=== PATIENT | male | born 1960 | race Caucasian/White ===

== ENCOUNTER 2022-02-12 20:32 | Emergency (ER) | payer BC, SELFPAY ==
[2022-02-12 11:30] VITALS: O2SAT 94
--- NOTE | 2022-02-12 21:07 | CRLHL7_ITS ---
For Patients: As a result of the Century Cures Act, medical imaging exams and procedure reports are released immediately into your electronic medical record. You may view this report before your referring provider. If you have questions, please contact your health care provider. Indication: Pain and deformity at left 5th DIP Technique: Three views left 5th finger Comparison: None Findings impression: There is an obliquely oriented, intra-articular fracture of the base of the 5th distal phalanx. A small segment of distal phalanx remains in place while the remainder of the phalanx is dorsally dislocated 2 mm. Soft tissue swelling of the distal 5th finger. Dictated by Gladys Anthony MD @ 02/12/2022 11:04:31 PM (Electronically Signed)
[2022-02-12 21:26] VITALS: BP 158/96; PULSE 85; RESP 18; TEMP 36.3; O2SAT 98; BMI 22.9
--- NOTE | 2022-02-12 21:34 | ED.NURSE ---
Pt refusing Zofran at this time. States he does not feel nauseated, but more so worked up about situation, which led to emesis episode. Pt also states he used to take Ativan, but doctor will no longer prescribe it.
--- NOTE | 2022-02-12 22:54 | ED.NURSE ---
Pt becoming very aggressive and hostile. Spouse told commercial loan underwriter outside of room that pt's Ativan rx was d/c due to pt not making follow-up appointment. Behavioral Science Chair in room with Ativan to administer to pt. Pt states One milligram of Ativan isn't going to do anything, you need to bring me more! Are you guys even going to do anything? Or am I just going to sit here?. Pt told that doctors were very occupied with critical patients at this time, but that they would be in as soon as they can be. Pt states, Kenan Henry! Are you even going to treat me? I mean I'm having a nervous breakdown!. Pt again reminded that doctors are aware pt is here and will be here as soon as they can be, but disrespect, aggression, and violence will not be tolerated. Pt states Are you fucking kidding me?! Behavioral Science Chair exits room and closes door. Pt storms out of room into bathroom. Pt slamming doors. Security notified.
[2022-02-12] MEDS: OLANZapine 5 MG/ML inj IM (23:18)
[2022-02-12] MEDS: LORazepam 2 MG/ML inj IM (23:18)
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
[2022-02-12 23:50] VITALS: PULSE 79; O2SAT 94
--- NOTE | 2022-02-12 23:50 | ED.NURSE ---
Pt reports he is feeling much calmer now after the IM medications. MD notified.
--- NOTE | 2022-02-13 01:24 | ED.NURSE ---
MD in room with patient and family
--- NOTE | 2022-02-13 01:25 | CRLHL7_ITS ---
For Patients: As a result of the Cures Act, medical imaging exams and procedure reports are released immediately into your electronic medical record. You may view this report before your referring provider. If you have questions, please contact your health care provider. INDICATION: Post reduction. COMPARISON: Left 5th finger from yesterday at 2219 hours FINDINGS: The left 5th finger was examined with PA and lateral views using portable technique at 0138 hours for a total of 2 views. During the interval, the volar dislocation of the 5th distal phalanx has been reduced to near anatomic alignment. There continues to be minimal volar subluxation of the distal phalanx. The acute avulsion fracture of the dorsal aspect of the base of the 5th distal phalanx is seen to be mildly proximally displaced, overlapping the distal head of the 5th middle phalanx. There is no sign of additional acute fracture or dislocation. Again seen are changes of fusion of the 3rd CMC joint with a dorsal metallic plates and multiple anchoring screws. There is no sign of radiopaque foreign body. No degenerative disease is seen. IMPRESSION: Reduction of the previously seen volar dislocation of the 5th distal phalanx to near anatomic alignment, with minimal volar subluxation of the 5th distal phalanx. The acute avulsion fracture of the dorsal aspect of the base of the 5th distal phalanx is again seen to be mild proximally displaced. Dictated by Zhang Guzman MD @ 02/13/2022 2:36:22 AM (Electronically Signed)
== END 2022-02-13 03:14 | disposition home or self-care (01) ==
PROVIDERS: Emergency Provider Family Medicine; PCP Family Medicine
DX: S62.637A Displaced fracture of distal phalanx of left little finger, initial encounter for closed fracture (principal); F43.9 Reaction to severe stress, unspecified; F41.9 Anxiety disorder, unspecified
CPT/HCPCS: 26700; 73140; 94761; 96372; 99284; J2060; S0166

== ENCOUNTER 2022-05-19 17:52 | Emergency (ER) | payer BC, SELFPAY ==
[2022-05-19] VITALS (9 sets, daily range): BP systolic 129–169; BP diastolic 81–84; PULSE 84–116; RESP 16; TEMP 36.4; O2SAT 94–99; BMI 22.9
--- NOTE | 2022-05-19 18:17 | ED.GENADULT ---
HPI - General Adult General Time Seen by Provider: 18:17 Date Seen: 05/19/22 Chief complaint: Abdominal Pain Stated complaint: High Blood Pressure Stomachache Diabetic Issues Time Seen by Provider: 05/19/22 18:11 Source: patient and RN notes reviewed Mode of arrival: ambulatory Limitations: no limitations History of Present Illness HPI narrative: Patient is a 7-year-old male with type 2 diabetes coming in with about 40 history more upper abdominal pain associated with some dry heaving and diarrhea. He states that he has maybe had some sense of chills with this but no documented fever. Their thermometer is broke. He has been able to take in fluids, has been drinking a lot of water trying to keep his sugars down. His glucose has been up over 200 which is not typical for him. He has had really runny diarrheal stools to sometimes semi-soft but nothing formed. He has been stooling a lot. He believes his urination is still normal. He has had some dry heaves. The belly pain is been pretty much constant. He did start lisinopril about 2 weeks ago for elevated blood pressure. They have noticed his pulse is elevated as well. His did bring up the fact that she was worried about his heart in all of this. I reviewed with her that we certainly could do an EKG and a troponin, she was very happy about this. He has had a Tee fundoplication, prior appendectomy, prior cholecystectomy. He has had other orthopedic surgeries. He has had no travel outside of going to [place] at the end of March. He has no definite known ill contacts. His works at [employer] and there was norovirus going around there. She has not had any symptoms. He has had asthma since about age 38 but denies any respiratory symptoms with this. Related Data Home Medications Medication Instructions Recorded Confirmed albuterol sulfate 2.5 mg/3 mL mg 02/12/22 (0.083 %) solution for nebulization atorvastatin 40 mg tablet mg 02/12/22 glimepiride 4 mg tablet mg 02/12/22 hydroxyzine HCl 10 mg tablet mg 02/12/22 inhalational spacing device 02/12/22 02/12/22 (Yannick Carie [facility] spacer) ipratropium bromide 17 inhalation 02/12/22 mcg/actuation HFA aerosol inhaler (Atrovent HFA) budesonide-formoterol HFA 160 inhalation 05/19/22 mcg-4.5 mcg/actuation aerosol inhaler (Symbicort) empagliflozin 25 mg tablet mg 05/19/22 (Jardiance) fenofibrate 160 mg tablet mg 05/19/22 fluticasone propionate 50 intranasal 05/19/22 mcg/actuation nasal spray,suspension lisinopril 10 mg tablet mg 05/19/22 mirtazapine 7.5 mg tablet mg 05/19/22 venlafaxine 75 mg capsule,extended mg PO 05/19/22 release 24 hr Allergies Allergy/AdvReac Type Severity Reaction Status Date / Time amoxicillin Allergy Mild Hives Verified 05/19/22 20:14 cephalexin Allergy Mild Hives Verified 05/19/22 20:14 indomethacin Allergy Mild Flu-like Verified 05/19/22 20:14 Symptoms metformin Allergy Mild Vomiting Verified 05/19/22 20:14 salmeterol [From Serevent] Allergy Mild Muscle Verified 05/19/22 20:14 Cramps Review of Systems Status of ROS: Reports: 10 or more systems reviewed and unremarkable except as noted in History and below Exam Const: Vital Signs, click to edit/add: Vital Signs - 24 hr 05/19/22 18:03 05/19/22 18:29 05/19/22 18:59 Temperature 97.5 F L Pulse Rate 95 Pulse Rate [Right Pulse Oximeter] 116 H Respiratory Rate 16 Blood Pressure Blood Pressure [Ri ght Upper Arm] 169/84 H Pulse Oximetry 98 94 95 Oxygen Delivery Me thod Room Air 05/19/22 19:00 05/19/22 19:01 05/19/22 19:02 Temperature Pulse Rate 94 91 93 Pulse Rate [Right Pulse Oximeter] Respiratory Rate Blood Pressure 142/83 H Blood Pressure [Ri ght Upper Arm] Pulse Oximetry 95 96 97 Oxygen Delivery Me thod 05/19/22 19:20 05/19/22 19:39 05/19/22 20:06 Temperature Pulse Rate 93 Pulse Rate [Right Pulse Oximeter] 90 84 Respiratory Rate 16 16 Blood Pressure Blood Pressure [Ri ght Upper Arm] 148/81 H 129/81 Pulse Oximetry 99 98 98 Oxygen Delivery Me thod Room Air Room Air Documenting provider has reviewed patient's vital signs: yes Common normals: no apparent distress, oriented x3, no limitations, healthy appearing, alert and well nourished General appearance: cooperative, comfortable, well kempt and well developed Nutritional appearance: thin HENMT: Common normals: normocephalic, head/scalp atraumatic, hearing grossly normal bilaterally, external ears normal, external nose normal, nasal mucous membranes and turbinates normal, moist oral mucous membranes, oropharynx normal, dentition normal and gingiva normal Head and scalp: normocephalic and atraumatic Nose: external nose normal and nasal mucous membranes and turbinates normal External ear: external ears normal Eye: Common normals: PERRL, EOMs intact bilaterally, conjunctivae normal and no scleral icterus Conjunctiva: conjunctiva(e) normal Pupil: PERRL Neck & C-Spine: Common normals: full ROM, no lymphadenopathy, supple, no meningeal signs, no JVD and thyroid normal Thyroid: thyroid normal Resp: Common normals: normal respiratory effort, no retractions, no use of accessory muscles and clear to auscultation bilaterally Effort & inspection: able to speak in complete sentences Auscultation: clear to auscultation bilaterally Cardio: Common normals: no JVD GI: Common normals: Normal to inspection, nondistended, normoactive bowel sounds present, soft to palpation, no hepatosplenomegaly and no masses Palpation: soft and no hepatosplenomegaly Other: Is tender in the epigastric area, some in the left lower quadrant as well. Extremity: Other: No lower extremity edema. Neuro: Common normals: oriented x3 Sensorium/orientation: alert Meningeal signs: no meningeal signs Psych: Appearance: well kempt Course Course Hospital Course: Will have patient on pulse oximetry, get a baseline EKG in consider cardiac monitoring if needed. Will get appropriate labs and will do a troponin. He needs imaging of his abdomen, will recommend contrast but do think we should wait on creatinine for him. With initiation of lisinopril a few weeks ago, now with some GI symptomatology, want to ensure that his kidney function is normal. There has been a gastroenteritis virus in the community, partial small-bowel obstruction, they did bring up pancreatic cancer. Try to reassure them that my initial suspicion is not pancreatic cancer but pancreatitis certainly could be an etiology. We will be getting imaging. He is mildly tachycardic, do think it is reasonable to get the EKG and troponin. We will be doing the triple swab to rule out 1 of the viral infectious etiologies. They do understand that sometimes COVID and influenza can % more with GI symptoms. This time will initiate a L of IV fluids over 2 hours, 4 mg IV Zofran and 4 mg IV morphine. He will be on pulse oximetry for initial monitoring. Reevaluation(s) Reevaluation #1: Have reviewed with patient that his CT is normal outside of the fatty liver. He states he was aware that he had fatty liver. I do wonder if he is having the current viral gastroenteritis that we been seen in the community and will proceed with this being the presumptive diagnosis. His laboratory evaluation is unremarkable. They were reassured that his troponin and EKG look fine. Time: 20:16 Vital Signs Vital signs: Initial Vital Signs Temperature 97.5 F L 05/19/22 18:03 Temperature Source Temporal Artery Scan 05/19/22 18:03 Pulse Rate 116 H 05/19/22 18:03 Respiratory Rate 16 05/19/22 18:03 Blood Pressure 169/84 H 05/19/22 18:03 Blood Pressure Mean 112 05/19/22 18:03 Pulse Oximetry 98 05/19/22 18:03 Oxygen Delivery Method 05/19/22 18:03 Vital Signs Temperature 97.5 F L 05/19/22 18:03 Pulse Rate 116 H 05/19/22 18:03 Respiratory Rate 16 05/19/22 18:03 Blood Pressure 169/84 H 05/19/22 18:03 Pulse Oximetry 98 05/19/22 18:03 Oxygen Delivery Method 05/19/22 18:03 Temperature 97.5 F L 05/19/22 18:03 Pulse Rate 84 05/19/22 20:06 Respiratory Rate 16 05/19/22 20:06 Blood Pressure 129/81 05/19/22 20:06 Pulse Oximetry 98 05/19/22 20:06 Oxygen Delivery Method 05/19/22 20:06 Medical Decision Making Lab Data Lab results reviewed: Yes I reviewed the patient's lab results Labs: Lab Results 05/19/22 05/19/22 05/19/22 Range/Units 18:45 18:45 18:45 WBC 8.01 (4.50-11.00) K/uL RBC 5.53 (4.30-5.90) m/uL Hgb 16.4 (13.5-17.5) gm/dL Hct 47.1 (37.0-53.0) % MCV 85 (80-100) fL MCH 30 (26-34) pg MCHC 35 (32-36) gm/dL RDW Coeff of Stefania 12.3 (11.5-15.5) % Plt Count 244 (140-440) K/uL Neut % (Auto) 68.6 (42.0-72.0) % Lymph % (Auto) 20.0 (20-44) % Dougherty % (Auto) 9.7 (0.0-11.0) % Eos % (Auto) 1.0 (0.0-7.0) % Baso % (Auto) 0.6 (0.0-3.0) % Neut # (Auto) 5.49 (1.7-7.0) K/uL Lymph # (Auto) 1.60 (0.90-2.90) K/uL Dougherty # (Auto) 0.80 (0.00-0.90) K/UL Eos # (Auto) 0.08 (0.00-0.50) K/uL Baso # (Auto) 0.05 (0.00-0.30) K/uL Sodium 136 (135-149) mmol/L Potassium 4.3 (3.6-5.1) mmol/L Chloride 104 (96-114) mmol/L Carbon Dioxide 20 (20-32) mmol/L BUN 35 H (7-30) mg/dL Creatinine 1.0 (0.5-1.5) mg/dL Estimated Creat Clear 78.12 Estimated GFR 86 ml/min Glucose 237 H (60-115) mg/dL Lactate 1.4 (0.5-1.9) mmol/L Calcium 9.5 (8.4-10.6) mg/dL Total Bilirubin 0.5 (0.1-1.5) mg/dL AST 43 H (12-35) U/L ALT 75 H (4-50) U/L Alkaline Phosphatase 129 (40-150) U/L C-Reactive Protein 0.6 (0.5-1.0) mg/dL Total Protein 8.5 H (6.0-8.3) g/dL Albumin 4.9 (3.3-5.0) g/dL Lipase 227 (23-300) U/L SARS-CoV-2 (PCR) (Negative) Influenza Type A (PCR) (Negative) Influenza Type B (PCR) (Negative) RSV (PCR) (Negative) POC Troponin I (0.01-0.04) ng/ml 05/19/22 05/19/22 Range/Units 18:52 18:58 WBC (4.50-11.00) K/uL RBC (4.30-5.90) m/uL Hgb (13.5-17.5) gm/dL Hct (37.0-53.0) % MCV (80-100) fL MCH (26-34) pg MCHC (32-36) gm/dL RDW Coeff of Stefania (11.5-15.5) % Plt Count (140-440) K/uL Neut % (Auto) (42.0-72.0) % Lymph % (Auto) (20-44) % Dougherty % (Auto) (0.0-11.0) % Eos % (Auto) (0.0-7.0) % Baso % (Auto) (0.0-3.0) % Neut # (Auto) (1.7-7.0) K/uL Lymph # (Auto) (0.90-2.90) K/uL Dougherty # (Auto) (0.00-0.90) K/UL Eos # (Auto) (0.00-0.50) K/uL Baso # (Auto) (0.00-0.30) K/uL Sodium (135-149) mmol/L Potassium (3.6-5.1) mmol/L Chloride (96-114) mmol/L Carbon Dioxide (20-32) mmol/L BUN (7-30) mg/dL Creatinine (0.5-1.5) mg/dL Estimated Creat Clear Estimated GFR ml/min Glucose (60-115) mg/dL Lactate (0.5-1.9) mmol/L Calcium (8.4-10.6) mg/dL Total Bilirubin (0.1-1.5) mg/dL AST (12-35) U/L ALT (4-50) U/L Alkaline Phosphatase (40-150) U/L C-Reactive Protein (0.5-1.0) mg/dL Total Protein (6.0-8.3) g/dL Albumin (3.3-5.0) g/dL Lipase (23-300) U/L SARS-CoV-2 (PCR) Negative SARS-CoV-2 (Negative) Influenza Type A (PCR) Negative PCR FLU A (Negative) Influenza Type B (PCR) Negative PCR FLU B (Negative) RSV (PCR) Negative PCR RSV (Negative) POC Troponin I 0.00 L (0.01-0.04) ng/ml Imaging Data CT scan - abdomen: Attestation: I have reviewed the pertinent imaging results. Radiologist's impression: Patient: [facility] Facility:?[facility] Patient ID:?[id number] Site Patient ID:?[id number]. Site :?[id number] Study:?CT Abdomen/Pelvis 76cc Isovue 370-05/19/2022 7:36:59 PM Ordering Physician:Vladimir Ortega Final Report: INDICATION: Abdominal pain/diarrhea. TECHNIQUE: CT abdomen and pelvis acquired with 76 cc Isovue 3 septae IV contrast. COMPARISON: None. FINDINGS: Lower chest: Unremarkable. Liver: Hepatic steatosis. Gallbladder and bile ducts: Cholecystectomy. Pancreas: Unremarkable. No mass or inflammation. Spleen: Unremarkable. Normal in size. No masses. Adrenal glands: Unremarkable. No nodules. Kidneys: Unremarkable. No suspicious masses, stones, or hydronephrosis. GI tract: Postsurgical changes about the GE junction. Normal in caliber. No sign of mass or inflammation. Vasculature: Abdominal aorta is normal in caliber. Mesenteric arteries are patent. Lymph nodes: No lymphadenopathy. Peritoneum/Abdominal Wall: Unremarkable. No sign of mass or infiltration. No free air or significant free fluid. Pelvis: Unremarkable. Bones: Unremarkable for age. IMPRESSION: No acute intra-abdominal/pelvic abnormality. Hepatic steatosis. Please note that all CT scans at this facility use dose modulation, iterative reconstruction, and/or weight-based dosing when appropriate to reduce radiation dose to as low as reasonably achievable. Dictated by Km Mckeon MD @ 05/19/2022 7:54:44 PM (Electronic Signature) ECG Data Attestation: I personally reviewed and interpreted this ECG as follows: (Normal sinus rhythm, 100 beats per minute. Flipped T-waves without ST segment slip box changer 3. QT corrected 433 milliseconds. No acute ischemia noted.) Prior ECG tracings: not available for review Critical Care Time Critical Care Time Critical Care Time: No Discharge Plan Discharge Clinical Impression: Gastroenteritis Patient Disposition: Home, Self-Care Condition: Stable Instructions: Gastroenteritis (ED), Nutrition Tips for Relief of Diarrhea (ED) Additional Instructions: Continue to push fluids. Follow handout on dietary recommendations for diarrhea, may advance diet back to normal as you are feeling better. Hopefully as this resolves, your sugars will improve. I would recommend recheck in 24-48 hours if you are not improving or at any point you feel you are worsening. Prescriptions: No Action atorvastatin 40 mg tablet Label Comments: TAKE 1 TABLET BY MOUTH AT BEDTIME albuterol sulfate 2.5 mg /3 mL (0.083 %) solution for nebulization Label Comments: INHALE 3 ML (2.5 MG) VIA A NEBULIZER EVERY 4 HOURS IF NEEDED FOR SHORTNESS OF BREATH. glimepiride 4 mg tablet Label Comments: TAKE 2 TABLETS (8 MG) BY MOUTH ONCE DAILY WITH A MEAL. hydroxyzine HCl 10 mg tablet Label Comments: TAKE 1 TO 2 TABS AT BEDTIME NEEDED FOR SLEEP & 1 TAB UP TO 2X DAILY NEEDED FOR ANXIETY (DME) [facility] Spacer MISCELLANEOUS Label Comments: FOR HOME USE. Atrovent HFA 17 mcg/actuation HFA aerosol inhaler INHALATION Label Comments: INHALE 2 PUFFS BY MOUTH 4 TIMES DAILY. lisinopril 10 mg tablet Label Comments: TAKE 1 TABLET BY MOUTH EVERY DAY venlafaxine 75 mg capsule,extended release 24hr PO Label Comments: TAKE 1 CAPSULE BY MOUTH EVERY DAY fluticasone propionate 50 mcg/actuation spray,suspension INTRANASAL Label Comments: INSTILL 2 SPRAYS TO BOTH NOSTRILS ONCE DAILY mirtazapine 7.5 mg tablet Label Comments: TAKE 1 TABLET BY MOUTH AT BEDTIME fenofibrate 160 mg tablet Label Comments: TAKE 1 TABLET (160 MG) BY MOUTH ONCE DAILY WITH A MEAL budesonide-formoterol [Symbicort] 160-4.5 mcg/actuation HFA aerosol inhaler INHALATION Label Comments: INHALE 2 PUFFS BY MOUTH TWICE A DAY Jardiance 25 mg tablet Label Comments: TAKE 1 TABLET BY MOUTH EVERY DAY Follow Up/Referrals: Patience Figueroa MD [Primary Care Provider] - Stand Alone Forms: [facility] Info Instructions
--- NOTE | 2022-05-19 18:30 | CRLHL7_ITS ---
For Patients: As a result of the Century Cures Act, medical imaging exams and procedure reports are released immediately into your electronic medical record. You may view this report before your referring provider. If you have questions, please contact your health care provider. INDICATION: Abdominal pain/diarrhea. TECHNIQUE: CT abdomen and pelvis acquired with 76 cc Isovue 3 septae IV contrast. COMPARISON: None. FINDINGS: Lower chest: Unremarkable. Liver: Hepatic steatosis. Gallbladder and bile ducts: Cholecystectomy. Pancreas: Unremarkable. No mass or inflammation. Spleen: Unremarkable. Normal in size. No masses. Adrenal glands: Unremarkable. No nodules. Kidneys: Unremarkable. No suspicious masses, stones, or hydronephrosis. GI tract: Postsurgical changes about the GE junction. Normal in caliber. No sign of mass or inflammation. Vasculature: Abdominal aorta is normal in caliber. Mesenteric arteries are patent. Lymph nodes: No lymphadenopathy. Peritoneum/Abdominal Wall: Unremarkable. No sign of mass or infiltration. No free air or significant free fluid. Pelvis: Unremarkable. Bones: Unremarkable for age. IMPRESSION: No acute intra-abdominal/pelvic abnormality. Hepatic steatosis. Please note that all CT scans at this facility use dose modulation, iterative reconstruction, and/or weight-based dosing when appropriate to reduce radiation dose to as low as reasonably achievable. Dictated by Km Mckeon MD @ 05/19/2022 7:54:44 PM (Electronically Signed)
[2022-05-19] MEDS: ONDANSETRON 2 MG/ML inj 4 MG IVP (18:46)
[2022-05-19] MEDS: 0.9 % SODIUM CHLORIDE 1000 ml 1,000 ML 500 ML IV (18:46)
[2022-05-19] MEDS: MORPHINE 4 MG/ML INJ IVP (18:46)
[2022-05-19 18:49] LABS: Lactate* 1.4 mmol/L (0.5-1.9)
[2022-05-19 18:53] LABS: Basophils Absolute Auto 0.05 K/uL (0.00-0.30); Basophils Percent Auto 0.6 % (0.0-3.0); Eosinophils Absolute Auto 0.08 K/uL (0.00-0.50); Hematocrit 47.1 % (37.0-53.0); Hemoglobin* 16.4 gm/dL (13.5-17.5); Immature Granulocytes Abs Auto 0.01 K/uL (0.00-0.30); Immature Granulocytes Pct Auto 0.1 %; Mean Corpuscular HGB Conc 35 gm/dL (32-36); Mean Corpuscular Hemoglobin 30 pg (26-34); Mean Corpuscular Volume 85 fL (80-100); Monocytes Percent Auto 9.7 % (0.0-11.0); Neutrophils Absolute Auto 5.49 K/uL (1.7-7.0); Neutrophils Percent Auto 68.6 % (42.0-72.0); Platelet Count* 244 K/uL (140-440); RDW Coefficient of Variation % 12.3 % (11.5-15.5); Red Blood Count 5.53 m/uL (4.30-5.90); White Blood Count* 8.01 K/uL (4.50-11.00)
[2022-05-19 18:56] LABS: Slide Review Reflex No
[2022-05-19 19:09] LABS: Albumin* 4.9 g/dL (3.3-5.0); Chloride* 104 mmol/L (96-114)
[2022-05-19 19:10] LABS: Potassium* 4.3 mmol/L (3.6-5.1); Sodium* 136 mmol/L (135-149)
[2022-05-19 19:12] LABS: Alanine Aminotransferase* 75 U/L (4-50); Alkaline Phosphatase* 129 U/L (40-150); Aspartate Amino Transferase* 43 U/L (12-35); Bilirubin Total* 0.5 mg/dL (0.1-1.5); Blood Urea Nitrogen* 35 mg/dL (7-30); Carbon Dioxide* 20 mmol/L (20-32); Est. Creatinine Clearance* 78.12; Estimated Glomerular Filt Rate 86 ml/min; Lipase* 227 U/L (23-300); Total Protein* 8.5 g/dL (6.0-8.3)
[2022-05-19 19:13] LABS: Calcium* 9.5 mg/dL (8.4-10.6); Glucose* 237 mg/dL (60-115)
[2022-05-19 19:15] LABS: C Reactive Protein* 0.6 mg/dL (0.5-1.0)
[2022-05-19 19:38] LABS: PCR FLU A Negative PCR FLU A (Negative); PCR FLU B Negative PCR FLU B (Negative); PCR RSV Negative PCR RSV (Negative)
[2022-05-19 19:41] LABS: SARS PCR* Negative SARS-CoV-2 (Negative)
== END 2022-05-19 20:29 | disposition home or self-care (01) ==
PROVIDERS: Emergency Provider Family Medicine; PCP Family Medicine
DX: K52.9 Noninfective gastroenteritis and colitis, unspecified (principal)
CPT/HCPCS: 36415; 74177; 80053; 83605; 83690; 84484; 85025; 86140; 87502; 87634; 87635; 93005; 94761; 96361; 96374; 96375; 99284; 99285; J2270; J2405; J7030; Q9967

== ENCOUNTER 2022-12-07 21:42 | Emergency (ER) | payer BC, SELFPAY ==
[2022-12-07] VITALS (13 sets, daily range): BP systolic 131–147; BP diastolic 77–95; PULSE 73–86; RESP 20; TEMP 36.2; O2SAT 97–100; BMI 22.2
--- OUTSIDE RECORDS SUMMARY | 2022-12-07 21:46 | XMS_ITS | Continuity of Care Document ---
Author Name Unknown Organization [facility] Address [address] [address] [place] [address] Phone Care Team Providers Care Certified Health Education Specialist Name Role Phone Walt Gregory MD Unavailable Unavailable Procedures Procedure Date Ugi Endo; Dx W/wo Collec Specm 13 Colonoscopy Flex; Dx (sep Pro) 13 Advance Directives Directive Yes / No Effective Date File Name No Information Encounters Encounter Description Practice Location Reason(s) For Visit Diagnoses Date Provider Providers Copied on Encounter [facility], [address] [address], [place], [place], [id number], [place] tel:[phone] [facility] No Information Colt Godoy. [address] [facility], [place], [place], [id number], [place]. tel:[phone] Referring Provider: Homero Renteria MD D, [address] [facility] [address], [place], [address]. tel:[phone] Family History Family Member Type Diagnosis Age At Onset No Information Payers Payer name Insurance type Covered green party ID Authoriza tion(s) [employer] [facility] CI [id number] Social History Type Description Quantity Date Captured Comments Sex Male Smoking Status No Information Chief Complaint And Reason For Visit No Information Reason For Referral Reason For Referral No Information History Of Present Illness Encounter Date Complaint History Of Prese nt Illness No Information Functional Status Date Functional Assessmen t No Information Instructions Date Instruction Additional Infor mation No Information Assessments Type Assessment Date No Information Patient Care Teams Name Effective Dates (start - stop) Status Members No Information
[2022-12-07 22:01] LABS: Glucose, Point-of-Care* 283 mg/dl (60-115)
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
--- NOTE | 2022-12-07 22:10 | ED.NURSE ---
pt reporting pain, saying he is always in pain, has fibromyalgia and arthritis
--- NOTE | 2022-12-07 22:12 | CRLHL7_ITS ---
For Patients: As a result of the Cures Act, medical imaging exams and procedure reports are released immediately into your electronic medical record. You may view this report before your referring provider. If you have questions, please contact your health care provider. INDICATION: Asthma TECHNIQUE: Chest radiograph 2 views COMPARISON: None FINDINGS: Mediastinum: The mediastinum is normal in appearance. The heart silhouette is normal in size and morphology. Lung: Both lungs are unremarkable in appearance. No sign of pleural effusion seen. No pneumothorax is identified. Bone and Soft tissue: Unremarkable for age. IMPRESSION: 1. No acute cardiopulmonary disease is seen. Dictated by: Alexandro Vidales MD @ 12/08/2022 00:22:01 (Electronically Signed)
[2022-12-07 22:20] LABS: HCO3 VBG 21 mmol/L (21-28); Lactate* 2.6 mmol/L (0.5-1.9); PCO2 VBG 24 mmHG (40-50); PO2 VBG 65.4 mmHG (25-47); pH VBG 7.545 (7.32-7.43)
[2022-12-07 22:39] LABS: Albumin* 4.5 g/dL (3.3-5.0); Chloride* 107 mmol/L (96-114)
[2022-12-07 22:40] LABS: Potassium* 4.4 mmol/L (3.6-5.1); Sodium* 135 mmol/L (135-149)
[2022-12-07 22:41] LABS: Basophils Absolute Auto 0.05 K/uL (0.00-0.30); Basophils Percent Auto 0.7 % (0.0-3.0); Eosinophils Absolute Auto 0.25 K/uL (0.00-0.50); Eosinophils Percent Auto 3.5 % (0.0-7.0); Hematocrit 42.7 % (37.0-53.0); Hemoglobin* 14.5 gm/dL (13.5-17.5); Immature Granulocytes Abs Auto 0.02 K/uL (0.00-0.30); Immature Granulocytes Pct Auto 0.3 %; Lymphocytes Absolute Auto 1.76 K/uL (0.90-2.90); Lymphocytes Percent Auto 24.9 % (20-44); Mean Corpuscular HGB Conc 34 gm/dL (32-36); Mean Corpuscular Hemoglobin 29 pg (26-34); Mean Corpuscular Volume 86 fL (80-100); Monocytes Percent Auto 9.3 % (0.0-11.0); Neutrophils Absolute Auto 4.34 K/uL (1.7-7.0); Neutrophils Percent Auto 61.3 % (42.0-72.0); Platelet Count* 296 K/uL (140-440); RDW Coefficient of Variation % 13.6 % (11.5-15.5); Red Blood Count 4.98 m/uL (4.30-5.90); White Blood Count* 7.08 K/uL (4.50-11.00)
[2022-12-07 22:42] LABS: Est. Creatinine Clearance* 74.65; Estimated Glomerular Filt Rate 86 ml/min
[2022-12-07 22:43] LABS: Alanine Aminotransferase* 40 U/L (4-50); Alkaline Phosphatase* 116 U/L (40-150); Anion Gap 10 mEq/L (7-15); Aspartate Amino Transferase* 34 U/L (12-35); Bilirubin Total* 0.4 mg/dL (0.1-1.5); Blood Urea Nitrogen* 26 mg/dL (7-30); Calcium* 9.7 mg/dL (8.4-10.6); Carbon Dioxide* 18 mmol/L (20-32); Glucose* 249 mg/dL (60-115); Total Protein* 7.8 g/dL (6.0-8.3)
[2022-12-07 22:44] LABS: D Dimer Quantitative* 0.42 ug/ml (0.00-0.50)
[2022-12-07 22:46] LABS: C Reactive Protein* 0.9 mg/dL (0.5-1.0)
[2022-12-07 22:48] LABS: Slide Review Reflex No
[2022-12-07 22:52] LABS: NT Pro B Type NatriureticPept* 28 pg/mL
[2022-12-07 22:58] LABS: Procalcitonin* 0.08 ng/mL (<0.50)
[2022-12-07 23:04] LABS: PCR FLU A Negative PCR FLU A (Negative); PCR FLU B Negative PCR FLU B (Negative); PCR RSV Negative PCR RSV (Negative)
[2022-12-07 23:07] LABS: SARS PCR* Negative SARS-CoV-2 (Negative)
--- NOTE | 2022-12-07 23:45 | ED.NURSE ---
pt report given off to oncoming RN.
[2022-12-08] VITALS: PULSE 73; O2SAT 97
[2022-12-08 00:01] VITALS: BP 135/82; PULSE 72; O2SAT 93
[2022-12-08 00:30] VITALS: PULSE 80; O2SAT 94
[2022-12-08 00:32] VITALS: BP 121/99; PULSE 78; O2SAT 96
[2022-12-08 00:56] VITALS: BP 121/99; PULSE 74; RESP 18
== END 2022-12-08 01:03 | disposition home or self-care (01) ==
PROVIDERS: Emergency Provider Family Medicine
DX: F41.9 Anxiety disorder, unspecified (principal)
CPT/HCPCS: 36415; 71046; 80053; 82803; 82947; 83605; 83880; 84145; 84484; 85025; 85379; 86140; 87631; 93005; 94761; 99284; 99285

== ENCOUNTER 2024-03-29 22:17 | Emergency (ER) | payer MEDICARE, BC, SELFPAY ==
--- OUTSIDE RECORDS SUMMARY | 2024-03-29 22:19 | XMS_ITS | Clinical Summary ---
Author Organization [facility] Address [address] [place] [id number] Care Team Providers Care Bag Mender Name Role Phone Terrirui Kristie Zamora APRN INFLATED BALL MOLDER Primary Care Provid er Allergies Active Allergy Reactions Criticality Noted Date Comments Amoxicillin Low 02/20/2002 rash Cephalexin Low 02/20/2002 rash Erythromycin Low 02/20/2002 rash Metformin Low 11/25/2018 Diarrhea and nausea Salmeterol Medium 02/09/2008 Muscle cramps Medications Esomeprazole Magnesium (NEXIUM PO) Take 20 mg by mouth Active blood glucose (ACCU-CHEK RUBENS PLUS) test stripIndications :Type 2 diabetes mellitus without complication, without long-term current use of insulin (H) Use to test blood sugar 2-3 times daily or as directed. 300 strip 3 0 Active albuterol (PROAIR HFA/PROVENTIL HFA/VENTOLIN HFA) 108 (90 Base) MCG/ACT inhalerIndicatio ns:Moderate intermittent asthma without complication Inhale 2 puffs into the lungs every 6 hours as needed for shortness of breath / dyspnea or wheezing 3 Inhaler 3 0 Active ipratropium (ATROVENT HFA) 17 MCG/ACT inhalerIndicatio ns:Moderate intermittent asthma without complication Inhale 2 puffs into the lungs every 6 hours 1 Inhaler 12 0 Active ipratropium (ATROVENT) 0.02 % neb solutionIndicati ons:Moderate intermittent asthma without complication Take 2.5 mLs (0.5 mg) by nebulization 4 times daily 75 mL 12 0 Active Additional Information Patient not taking.Reported on 06/26/2020 empagliflozin (JARDIANCE) 25 MG TABS tabletIndication s:Type 2 diabetes mellitus without complication, without long-term current use of insulin (H) Take 1 tablet (25 mg) by mouth daily 90 tablet 3 0 Active budesonide-formo terol (SYMBICORT) 160-4.5 MCG/ACT InhalerIndicatio ns:Moderate intermittent asthma without complication INHALE 2 PUFFS INTO THE LUNGS TWO TIMES DAILY 30.6 Inhaler 3 0 Active vitamin D3 (CHOLECALCIFEROL ) 50 mcg (2000 units) tabletIndication s:Vitamin D deficiency TAKE 1 TABLET BY MOUTH EVERY DAY 100 tablet 2 0 Active meclizine (ANTIVERT) 25 MG tabletIndication s:Benign paroxysmal positional vertigo due to bilateral vestibular disorder Take 1 tablet (25 mg) by mouth 3 times daily as needed for dizziness 90 tablet 1 1 Active cyclobenzaprine (FLEXERIL) 10 MG tabletIndication s:Muscle spasm Take 1 tablet (10 mg) by mouth nightly as needed for muscle spasms 90 tablet 1 1 Active LORazepam (ATIVAN) 0.5 MG tabletIndication s:Anxiety Take 1 tablet (0.5 mg) by mouth 2 times daily as needed for anxiety 60 tablet 3 1 Active glimepiride (AMARYL) 4 MG tabletIndication s:Type 2 diabetes mellitus without complication, without long-term current use of insulin (H) Take 1 tablet (4 mg) by mouth every morning (before breakfast) 90 tablet 3 1 Active buPROPion (WELLBUTRIN XL) 150 MG 24 hr tabletIndication s:Anxiety TAKE 1 TABLET BY MOUTH EVERY MORNING 90 tablet 1 1 Active atorvastatin (LIPITOR) 40 MG tabletIndication s:Hypertriglycer idemia,Hyperchol esteremia TAKE 1 TABLET BY MOUTH EVERY DAY 90 tablet 1 Active citalopram (CELEXA) 40 MG tabletIndication s:Anxiety TAKE 1 TABLET BY MOUTH EVERY DAY 90 tablet 1 Active fenofibrate (TRIGLIDE/LOFIBR A) 160 MG tabletIndication s:Type 2 diabetes mellitus without complication, without long-term current use of insulin (H),Hypertriglyc eridemia,Hyperch olesteremia TAKE 1 TABLET BY MOUTH EVERY DAY 90 tablet 1 Active Active Problems Problem Noted Date Diagnosed Date Hypertriglyceridemia 01/19/2018 CARDIOVASCULAR SCREENING; LDL GOAL LESS THAN 100 04/01/2017 Type 2 diabetes mellitus wit hout complication, without long-term current use of insulin 10/29/2016 Anxiety 11/25/2011 Moderate persistent asthma 04/08/2005 Esophageal reflux 05/01/2002 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 Provider to review Sarcoidosis Overview (03/01/2007): (incidental cxr finding) (+) bx , asymptomatic Resolved Problems Problem Noted Date Diagnosed Date Resolved Date Mixed hyperlipidemia 02/03/2010 012 Immunizations Name Administration Dates Next Due COVID-19 Monovalent 18+ (Moderna) 01/28/2021 COVID-19 Vaccine (Adry) 06/19/2020 Influenza (H1N1) 03/07/2009 Influenza (IIV3) PF 12/19/2008 Influenza Vaccine 18-64 (Flublok) 11/30/2019 TD,PF 7+ (Tenivac) 08/20/2001 TDAP Vaccine (Adacel) 11/19/2011 Tdap (Adult) Unspecified Formulation 07/12/2020 Zoster recombinant adjuvanted (SHINGRIX) 021,07/12/2020 Family History Medical History Relation Comments Cancer Father skin Cerebrovascular Disease Father Diabetes Father adult Hypertension Father also crohn's dz Cancer Maternal Grandfather esoph. smok er Breast Cancer Maternal Grandmother Breast Cancer Mother Diabetes Paternal Grandfather adult Hypertension Paternal Grandmother Neurologic Disorder Sister 1 fibromialgia Gastrointestinal Disease Sister 2 chrones Relation Status Comments Father Alive Maternal Grandfather Maternal Grandmother Mother Paternal Grandfather Paternal Grandmother Sister 1 Sister 2 Social History Tobacco Use Types Packs/Day Years Used Date Smoking Tobacco: Never Smokeless Tobacco: Never Alcohol Use Standard Drinks/Week Comments No 0 (1 standard drink = 0.6 oz pur e alcohol) PHQ-2 Answer Date Recorded PHQ-2 Score 1 11/30/2019 Adolescent Education Answer Date Record ed Getting School Help Needed Not on file 12/12 Sex and Gender Information Value Date Recorded Sex Assigned at Not on file 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 Gender Identity Not on file Sexual Orientation Not on file 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 Not on file Last Filed Vital Signs Vital Sign Reading Time Taken Comments Blood Pressure 130/78 06/26/2020 7:24 AM CDT Pulse 75 06/26/2020 7:24 AM CDT Temperature 36.8 C (98.2 F) 06/26/2020 7:24 AM CDT Respiratory Rate 22 06/26/2020 7:24 AM CDT Oxygen Saturation 99% 06/26/2020 7:24 AM CDT Inhaled Oxygen Concentration - - Weight 72.1 kg (159 lb) 06/26/2020 7:24 AM CDT Height 175.3 cm (5' 9) 06/26/2020 7:24 AM CDT Body Mass Index 23.48 06/26/2020 7:24 AM CDT Plan of Treatment Not on file Insurance [facility] [employer] [facility] [place] [place] [address] Care Teams Bag Mender Relationship Specialty Start Date End Date Kristie Barrientos APRN CNP [address] [place] [address] PCP - General Nurse Practitioner - Family 09/28/16
--- OUTSIDE RECORDS SUMMARY | 2024-03-29 22:19 | XMS_ITS | Referral Summary ---
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
--- OUTSIDE RECORDS SUMMARY | 2024-03-29 22:19 | XMS_ITS | Encounter Summary ---
Author Organization [facility] Address [address] [place] [address] Care Team Providers Care Nutrition Services Manager Name Role Phone No Ref-Primary, Physician Primary Care Provider CreagaKristie hunt APRN P[facility]DMAN Primary Care Provid er Creagan, Kristie Zamora APRN PONDMAN Unavailable [phone]- [phone] Creagan, Kristie Zamora APRN PONDMAN Unavailable [phone]- [phone] Creagan, Kristie Zamora APRN PONDMAN Unavailable [phone]- [phone] Reason for Visit * Reason Onset Date Comments Diabetes Education 08/13/2016 Encounter Details Date Type Department Care Team (Late st Contact Info) Description 08/13/[address] [place] [address] Kristie Barrientos RN Diabetes Education Social History Tobacco Use Types Packs/Day Years Used Date Smoking Tobacco: Never Alcohol Use Standard Drinks/Week Comments No 0 (1 standard drink = 0.6 oz pur e alcohol) Sex and Gender Information Value Date Recorded Sex Assigned at Not on file Legal 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 Patient states he has an appt scheduled for 09/07/16, admits that he has scheduled out that far because of his ownschedule. Encouraged pt to try to get in as soon as he can and to consider rescheduling appt. To doso. Garth Nicole R.N. * Telephone Encounter - Cameron Foster - 08/13/2016 1:24 PM CDT Diabetes Education Scheduling Outreach #1: Call to patient to schedule. Left message with phone number to call to schedule. Plan for 2nd outreach attempt within 1 week. [facility] documented in this encounter Plan of Treatment Not on file documented as of this encounter Visit Diagnoses Diagnosis Hypertriglyceridemia Pure hyperglyceridemia Type 2 diabetes mellitus with complication, without long-term current use of insulin (H) documented in this encounter Care Teams Nutrition Services Manager Relationship Specialty Start Date End Date No Ref-Primary, Physician PCP - General 08/11/16 09/27/16 Kristie Barrientos APRN [place] [address] [place] [address] PCP - General Nurse Practitioner - Family 09/28/16 Kristie Barrientos APRN [place] [address] [place] [address] PCP - Assigned PCP 08/16/16 05/24/18 Kristie Barrientos APRN [place] [address] [place] [address] Assigned PCP 08/16/16 03/06/22 Kristie Barrientos APRN [facility]DMAN [address] [place] [address] Assigned PCP 05/16/22 08/11/23 documented as of this encounter
--- OUTSIDE RECORDS SUMMARY | 2024-03-29 22:19 | XMS_ITS | Encounter Summary ---
Author Organization [facility] Address [address] [place] [address] Care Team Providers Care Retail Maintenance Technician Name Role Phone Kristie Barrientos APRN, CNP Primary Care Provid er Kristie Barrientos APRN WATCH PARTS INSPECTOR Unavailable + [phone] Kristie Barrientos APRN WATCH PARTS INSPECTOR Unavailable + [phone] Encounter Details Date Type Department Care Team (Late st Contact Info) Description 12/03/2020 [facility] [address] [place] [address] Vashti Lerner RN Social History Tobacco Use Types Packs/Day Years Used Date Smoking Tobacco: Never Smokeless Tobacco: Never Alcohol Use Standard Drinks/Week Comments No 0 (1 standard drink = 0.6 oz pur e alcohol) PHQ-2 Answer Date Recorded PHQ-2 Score 1 11/30/2019 Sex and Gender Information Value Date Recorded Sex Assigned at Not on file 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 Gender Identity Not on file Sexual Orientation Not on file 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 Not on file documented as of this encounter Plan of Treatment Not on file documented as of this encounter Visit Diagnoses Not on filedocumented in this encounter Additional Health Concerns Assessment Noted Time PHQ-9 Depression Total Score: 6 11/30/19 20 8:00 AM CDT documented as of this encounter Care Teams Retail Maintenance Technician Relationship Specialty Start Date End Date Kristie Barrientos APRN CNP [address] [place] [address] PCP - General Nurse Practitioner - Family 09/28/16 Kristie Barrientos APRN WATCH PARTS INSPECTOR [address] [place] [address] Assigned PCP 08/16/16 03/06/22 Kristie Barrientos APRN WATCH PARTS INSPECTOR [address] [place] [address] Assigned PCP 05/16/22 08/11/23 documented as of this encounter
--- OUTSIDE RECORDS SUMMARY | 2024-03-29 22:19 | XMS_ITS | Encounter Summary ---
Author Organization [facility] Address [address] [place] [address] Care Team Providers Care Community Nutrition Educator Name Role Phone Kristie Barrientos APRN, CNP Primary Care Provid er TerriagaKristie hunt APRN PLAYBACK OPERATOR Unavailable [phone]- [phone] TerriagaKristie hunt APRN PLAYBACK OPERATOR Unavailable Reason for Visit * Reason Comments Medication Refill Encounter Details Date Type Department Care Team (Late st Contact Info) Description 08/22/2019 [facility] [address] [facility] [address] [place] [address] Kristie Barrientos APRN [facility] [address] [place], [place] [id number] Medication Refill Social History Tobacco Use Types Packs/Day Years Used Date Smoking Tobacco: Never Smokeless Tobacco: Never Alcohol Use Standard Drinks/Week Comments No 0 (1 standard drink = 0.6 oz pur e alcohol) PHQ-2 Answer Date Recorded PHQ-2 Score 0 03/29/2018 Sex and Gender Information Value Date Recorded Sex Assigned at Not on file 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 Gender Identity Not on file Sexual Orientation Not on file 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 Not on file documented as of this encounter Plan of Treatment Not on file documented as of this encounter Visit Diagnoses Diagnosis Type 2 diabetes mellitus without complication, without long-term current use of insulin (H) documented in this encounter Care Teams Community Nutrition Educator Relationship Specialty Start Date End Date Kristie Barrientos APRN PLAYBACK OPERATOR [address] [place], [place] [address] PCP - General Nurse Practitioner - Family 09/28/16 Kristie Barrientos APRN PLAYBACK OPERATOR [address] [place] [address] Assigned PCP 08/16/16 03/06/22 Kristie Barrientos APRN PLAYBACK OPERATOR [address] [place] [address] Assigned PCP 05/16/22 08/11/23 documented as of this encounter
--- OUTSIDE RECORDS SUMMARY | 2024-03-29 22:19 | XMS_ITS | Encounter Summary ---
Author Organization [facility] Address [address] [place] [address] Care Team Providers Care Manufacturers Representative Name Role Phone Valdemar Richard MD Primary Care Provider [phone]- [phone] Homero Renteria MD Primary Care Provider [phone] No Ref-Primary, Physician Primary Care Provider Kristie Barrientos APRN SENIOR MAINFRAME DEVELOPER Primary Care Provid er Creagan, Kristie Zamora APRN SENIOR MAINFRAME DEVELOPER Unavailable [phone]- [phone] CreagaKristie hunt APRN SENIOR MAINFRAME DEVELOPER Unavailable [phone]- [phone] CreaganKristie APRN SENIOR MAINFRAME DEVELOPER Unavailable +1- [phone] Encounter Details Date Type Department Care Team (Late st Contact Info) Description 07/02/[address] [place] [address] Valdemar Richard MD [facility] [employer] [facility] [address] [place] [address] [facility] (Primary Dx) Social History Tobacco Use Types Packs/Day Years Used Date Smoking Tobacco: Never Smokeless Tobacco: Never Alcohol Use Standard Drinks/Week Comments No 0 (1 standard drink = 0.6 oz pur e alcohol) Sex and Gender Information Value Date Recorded Sex Assigned at Not on file 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 Gender Identity Not on file Sexual Orientation Not on file 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 Not on file documented as of this encounter Plan of Treatment Not on file documented as of this encounter Visit Diagnoses Diagnosis [facility]- Primary documented in this encounter Care Teams Manufacturers Representative Relationship Specialty Start Date End Date Valdemar Richard MD [facility] [address] [place] [address] PCP - General 05/05/02 01/12/10 Homero Renteria MD [facility] [address] [place] [address] PCP - General Internal Medicine 01/13/10 08/10/16 No Ref-Primary, Physician PCP - General 08/11/16 09/27/16 Kristie Barrientos APRN SENIOR MAINFRAME DEVELOPER [address] [place] [address] PCP - General Nurse Practitioner - Family 09/28/16 Kristie Barrientos APRN SENIOR MAINFRAME DEVELOPER [address] [place] [address] PCP - Assigned PCP 08/16/16 05/24/18 Kristie Barrientos APRN SENIOR MAINFRAME DEVELOPER [address] [place] [address] Assigned PCP 08/16/16 03/06/22 Kristie Barrientos APRN SENIOR MAINFRAME DEVELOPER [address] [place] [address] Assigned PCP 05/16/22 08/11/23 documented as of this encounter
--- OUTSIDE RECORDS SUMMARY | 2024-03-29 22:19 | XMS_ITS | Encounter Summary ---
Author Organization [facility] Address [address] [place] [address] Care Team Providers Care [employer] Resource Teacher Name Role Phone Kristie Barrientos APRN, CNP Primary Care Provid er TerriagaKristie hunt APRN DOCTOR OF RADIOLOGY Unavailable [phone]- [phone] TerriaganKristie APRN DOCTOR OF RADIOLOGY Unavailable [phone]- [phone] Reason for Visit * Reason Comments Medication Refill Encounter Details Date Type Department Care Team (Late st Contact Info) Description 01/03/2021 Refill [facility] [address] [place] [address] Kristie Barrientos APRN [facility] [address] [place] [address] Medication Refill Social History Tobacco Use Types Packs/Day Years Used Date Smoking Tobacco: Never Smokeless Tobacco: Never Alcohol Use Standard Drinks/Week Comments No 0 (1 standard drink = 0.6 oz pur e alcohol) PHQ-2 Answer Date Recorded PHQ-2 Score 1 11/30/2019 Sex and Gender Information Value Date Recorded Sex Assigned at Not on file Legal Sex Male 3:24 AM DIRECTOR OF HOME CARE HOSPICE Gender Identity Not on file Sexual Orientation Not on file 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 documented in this encounter Plan of Treatment Not on file documented as of this encounter Visit Diagnoses Diagnosis Hypertriglyceridemia Pure hyperglyceridemia Hypercholesteremia Pure hypercholesterolemia documented in this encounter Additional Health Concerns Assessment Noted Time PHQ-9 Depression Total Score: 6 11/30/19 20 8:00 AM CDT documented as of this encounter Care Teams [employer] Resource Teacher Relationship Specialty Start Date End Date Kristie Barrientos APRN DOCTOR OF RADIOLOGY [address] [place] [address] PCP - General Nurse Practitioner - Family 09/28/16 Kristie Barrientos APRN DOCTOR OF RADIOLOGY [address] [place] [address] Assigned PCP 08/16/16 03/06/22 Kristie Barrientos APRN DOCTOR OF RADIOLOGY [address] [place] [address] Assigned PCP 05/16/22 08/11/23 documented as of this encounter
--- OUTSIDE RECORDS SUMMARY | 2024-03-29 22:19 | XMS_ITS | Encounter Summary ---
Author Organization [facility] Address [address] [place] [address] Care Team Providers Care Chef De Froid Name Role Phone Kristie Barrientos APRN, CNP Primary Care Provid er TerriagaKristie hunt APRN NUMERICAL CONTROL MACHINE OPERATOR Unavailable [phone]- [phone] TerriagaKristie hunt APRN NUMERICAL CONTROL MACHINE OPERATOR Unavailable [phone]- [phone] Reason for Visit * Reason Comments Medication Refill Encounter Details Date Type Department Care Team (Late st Contact Info) Description 12/15/2020 Refill [facility] [address] [facility] [address] [place] [address] Kristie Barrientos APRN [facility] [address] [place] [address] Medication Refill Social History Tobacco Use Types Packs/Day Years Used Date Smoking Tobacco: Never Smokeless Tobacco: Never Alcohol Use Standard Drinks/Week Comments No 0 (1 standard drink = 0.6 oz pur e alcohol) PHQ-2 Answer Date Recorded PHQ-2 Score 1 11/30/2019 Sex and Gender Information Value Date Recorded Sex Assigned at Not on file Legal Sex Male 3:24 AM INFORMATION TECHNOLOGY PROGRAM MANAGER Gender Identity Not on file Sexual Orientation Not on file 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 documented in this encounter Plan of Treatment Not on file documented as of this encounter Visit Diagnoses Diagnosis Anxiety Anxiety state, unspecified documented in this encounter Additional Health Concerns Assessment Noted Time PHQ-9 Depression Total Score: 6 11/30/19 20 8:00 AM CDT documented as of this encounter Care Teams Chef De Froid Relationship Specialty Start Date End Date Kristie Barrientos APRN NUMERICAL CONTROL MACHINE OPERATOR [address] [place] [address] PCP - General Nurse Practitioner - Family 09/28/16 Kristie Barrientos APRN CNP [address] [place] [address] Assigned PCP 08/16/16 03/06/22 Kristie Barrientos APRN NUMERICAL CONTROL MACHINE OPERATOR [address] [place] [address] Assigned PCP 05/16/22 08/11/23 documented as of this encounter
--- OUTSIDE RECORDS SUMMARY | 2024-03-29 22:19 | XMS_ITS | Clinical Summary ---
Author Organization [employer] [facility] Address [place], [place] [address] Care Team Providers Care Switcher Name Role Phone Zuleyma Bolanos MD Primary Care Provider Allergies Active Allergy Reactions Criticality Noted Date Comments Amoxicillin 02/03/2010 hives Beet GI Upset 10/14/2020 Cephalexin 02/03/2010 hives [place] GI Upset 10/14/2020 Duloxetine Other - Describe In Comment Field 12/07/2022 Erythromycin 02/03/2010 hives Erythromycin Base Other - Describe In Comment Field 12/07/2022 Indomethacin GI Upset Low 02/12/2022 Metformin Diarrhea Low 11/25/2018 Diarrhea and nausea Salmeterol Myalgia Medium 02/09/2008 Muscle cramps Unlisted Allergen (Include Detail In Comments) Other - Describe In Comment Field 12/07/2022 Medications esomeprazole (NEXIUM) 40 mg capsule Take 1 capsule by mouth once daily before a meal. 0 08/24/19 12 Active cholecalciferol, Vitamin D3, 2,000 unit tablet Take 2,000 units by mouth once daily. 05/03/19 21 Active VITAMIN B COMPLEX ORAL Take 1 Tablet by mouth once daily. Active blood-glucose meterIndications:T ype 2 diabetes mellitus without complication, without long-term current use of insulin (HC) Dispense meter, test strips (#100 with 3 refills), lancets (#100 with 3 refills) covered by pt ins. E11.9 NIDDM type II - Test 1 time/day 1 Each 01/16/20 21 Active albuterol HFA (PRO-AIR; VENTOLIN; PROVENTIL) 90 mcg/actuation inhalerIndications :Moderate persistent asthma with acute exacerbation Inhale 2 Puffs by mouth 4 times daily if needed for Shortness Of Breath. Use with spacer device 1 Each 1 10/21/19 22 Active albuterol (PROVENTIL) 0.083 % neb solutionIndication s:Moderate persistent asthma with acute exacerbation Inhale 3 mL (2.5 mg) via a nebulizer every 4 hours if needed for Shortness Of Breath. 90 mL 10/21/19 22 Active Accu-Chek Guide test strips stripIndications:T ype 2 diabetes mellitus without complication, without long-term current use of insulin (HC) TEST ONCE DAILY 100 Each 3 01/05/20 22 Active Accu-Chek Softclix LancetsIndications :Type 2 diabetes mellitus without complication, without long-term current use of insulin (HC) TEST ONCE DAILY 100 Each 3 01/16/20 22 Active continuous glucose monitor READER (Physicians Formula Santa 2 Burney)Indications :Type 2 diabetes mellitus with complication, without long-term current use of insulin (HC) TO BE USED TO READ BLOOD SUGARS PER MANUF. DIRECTIONS 3 Each 3 03/07/20 23 Active atorvastatin (LIPITOR) 40 mg tabletIndications: Hyperlipidemia, unspecified hyperlipidemia type Take 1 Tablet (40 mg) by mouth at bedtime. 100 Tablet 3 08/23/19 24 Active fenofibrate 160 mg tabletIndications: Hyperlipidemia, unspecified hyperlipidemia type Take 1 Tablet (160 mg) by mouth once daily with a meal. 100 Tablet 3 08/23/19 24 Active fluticasone (50 mcg per actuation) nasal solution (FLONASE)Indicatio ns:Moderate persistent asthma with acute exacerbation Inhale 2 Sprays to both nostrils once daily. 48 mL 3 08/23/19 24 Active ipratropium (Atrovent HFA) 17 mcg/actuation inhalerIndications :Moderate persistent asthma without complication Inhale 2 Puffs by mouth four times daily. 38.7 Each 5 08/23/19 24 Active Jardiance 25 mg tabletIndications: Type 2 diabetes mellitus with stage 2 chronic kidney disease, without long-term current use of insulin (HC) Take 1 Tablet (25 mg) by mouth once daily. 100 Tablet 3 08/23/19 24 Active fluticasone furoate-vilanteroL (BREO ELLIPTA) 100-25 mcg/dose inhalation powderIndications: Moderate persistent asthma without complication Inhale 1 Puff by mouth once daily. Rinse mouth after use 180 Each 3 09/02/19 24 Active FreeStyle Santa 2 ReaderIndications: Type 2 diabetes mellitus with complication, without long-term current use of insulin (HC) To be used to read blood sugars per applications specialist's directions. 1 Each 10/29/19 24 Active FreeStyle Santa 2 SensorIndications: Type 2 diabetes mellitus with complication, without long-term current use of insulin (HC) CHANGE EVERY 14 DAYS 6 Each 3 11/23/19 24 Active traZODone (DESYREL) 100 mg tabletIndications: Psychophysiologica l insomnia TAKE 1 TO 1 AND 1/2 TABLETS(100 TO 150 MG) BY MOUTH AT BEDTIME 135 Tablet 1 12/20/19 24 Active venlafaxine (EFFEXOR XR) 150 mg Extended-Release capsuleIndications :BA (generalized anxiety disorder),MDD (major depressive disorder), recurrent episode, moderate (HC) Take 1 Capsule (150 mg) by mouth once daily with evening meal. 90 Capsule 1 12/20/19 24 Active cloNIDine HCL (CATAPRES) 0.1 mg tabletIndications: Psychophysiologica l insomnia,BA (generalized anxiety disorder),PTSD (post-traumatic stress disorder) Take 1 Tablet (0.1 mg) by mouth at bedtime. 90 Tablet 02/27/20 24 Active glimepiride (AMARYL) 4 mg tabletIndications: Type 2 diabetes mellitus with complication, without long-term current use of insulin (HC) Take 4 mg one tablet twice daily. 200 Tablet 3 03/23/19 25 Active glimepiride (AMARYL) 4 mg tabletIndications: Type 2 diabetes mellitus with complication, without long-term current use of insulin (HC) Take 4 mg one tablet twice daily. 200 Tablet 3 04/01/19 24 025 Discontin ued(Reord er (E-cancel not sent)) Active Problems Problem Noted Date Diagnosed Date MDD (major depressive disord er), recurrent episode, moderate 03/23/2024 Chronic pain associated with significant psychosocial dysfunction 12/16/2023 Primary osteoarthritis of left knee 04/23/2023 Chronic fatigue 04/01/2023 PTSD (post-traumatic stress disorder) 09/03/2022 Hyperlipidemia 09/03/2022 Type 2 diabetes mellitus wit h stage 2 chronic kidney disease 05/07/2022 Fibromyalgia 06/23/2021 Overview (06/23/2021): Consult fibromyalgia clinic [place] 2020 Neck pain, chronic 06/23/2021 Tremor 06/23/2021 Elevated ferritin level 03/12/2021 Overview (03/12/2021): 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 Provider to review Resolved Problems Problem Noted Date Diagnosed Date Resolved Date Type 2 diabetes mellitus wit h other specified complication, without long-term current use of insulin 04/01/2023 04/01/2023 Type 2 diabetes mellitus wit hout complication, without long-term current use of insulin 10/29/2016 04/01/2023 Major depression single epis ode, in partial remission 08/24/2011 04/11/2012 Major depression, single epi sode, in complete remission 09/29/2010 08/24/2011 Mild major depression, single episode 04/11/2010 09/29/2010 Depression with anxiety 02/03/201003/23 Encounters Date Type Department Care Team Description 03/28/2024 10:30 AM [employer] PRESS OPERATOR Nutrition/Dietici an [facility] [address] [place] [address] Error-please disregard (NO SHOW) 03/28/2024 8:00 AM [employer] PRESS OPERATOR - 03/28/2024 11:59 PM [employer] PRESS OPERATOR Hospital Encounter [facility] [address] [place] [address] Lizbeth Pagan, Gladys Cho, PT 03/28/2024 Travel 03/23/2024 7:30 AM [employer] PRESS OPERATOR Office Visit [facility] [address] [place] [address] Zuleyma Bolanos MD Diabetes (6 month Check Up ) 03/22/2024 Travel 02/29/2024 10:02 AM [employer] PRESS OPERATOR - 02/29/2024 11:59 PM [employer] PRESS OPERATOR Hospital Encounter [facility] [address] [place] [address] Lizbeth Pagan NP Bailey, Lisa, PT 02/29/2024 Travel 02/24/2024 Refill [facility] [address] [place] [address] Pina Gr NP Refill Request (Clonidine Hcl) 02/22/2024 9:20 AM [employer] PRESS OPERATOR - 02/22/2024 11:59 PM [employer] PRESS OPERATOR Hospital Encounter [facility] [address] [place] [address] Lizbeth Pagan, COLLECTIONS ASSOCIATE Gladys Barrera, PT 02/22/2024 Travel 01/03/2024 Refill [facility] [address] [place] [address] Pina Gr, COLLECTIONS ASSOCIATE Refill Request (Venlafaxine, Trazodone) from Last 3 Months Immunizations Name Administration Dates Next Due COVID-19 VACCINE SPIKEVAX (M ODERNA 50MCG/0.5ML) 12YO+ PFS 01/05/2023 COVID-19 vaccine (Moderna 10 0mcg/0.5mL) PF, MDV 01/28/2021 COVID-19 vaccine (Pfizer-Bio NTech 30mcg/0.3mL) 12YO+ BIVALENT PF, MDV 03/04/2022 COVID-19 vaccine (Pfizer-Bio NTech 30mcg/0.3mL) 12YO+ BARB-SUCROSE PF, MDV 10/20/2021 Influenza A (H1N1), Inactivated 03/05/2009 Influenza RIV4 (Age 18+ Years) PRESERV FREE 11/20 Influenza Virus, Unspecified 11/30/2019,12/20/19 09 Influenza, IIV4 12/09/2022,12/15/2021,11/04/2020 Pneumococcal Conj 20-valent (Prevnar 20) 023 Pneumococcal Poly,23-Valent (Pneumovax) 03/12/20 21 RSV, Bivalent Vaccine Recons tituted (Abrysvo 120MCG/0.5mL) 01/05/2023 TD, UNSPECIFIED 07/12/2020 Td, Preservative Free (age >= 7 Years) 2 Tdap 07/12/2020,11/19/2011 Zoster (Shingrix-RZV, recombinant) 10/22/2020, Family History Medical History Relation Name Comments Diabetes Father Hypertension Father Stroke Father Cancer-breast Mother Ulcerative colitis Sister Relation Name Status Comments Father Mother Sister Social History Tobacco Use Types Packs/Day Years Used Date Smoking Tobacco: Never Smokeless Tobacco: Never Tobacco Cessation:Counseling Given: No Alcohol Use Standard Drinks/Week Comments No 0 (1 standard drink = 0.6 oz pur e alcohol) PHQ-2 Answer Date Recorded PHQ-2 TOTAL SCORE 2 12/20/2023 Social Connections Answer Date Recorded Frequency of Communication with Friends and Fami ly 0 05/07/2022 Financial Resource Strain Answer Date R ecorded Difficulty of Paying Living Expenses 3 05/07/2022 Difficulty of Paying Living Expenses Not on file 05/07/2022 Food Insecurity Answer Date Recorded Worried About Running Out of Food in the Last Ye ar 1 05/07/2022 Transportation Needs Answer Date Record ed Lack of Transportation (Medical) 1 05/07/2022 Housing Stability Answer Date Recorded Unable to Pay for Housing in the Last Year 1 05/07/2022 Sex and Gender Information Value Date Recorded Sex Assigned at Not on file Legal Sex Male 6:27 AM [employer] PR[employer] OPERATOR Gender Identity Not on file Sexual Orientation Not on file Obstetrics History Last Filed Vital Signs Vital Sign Reading Time Taken Comments Blood Pressure 156/85 03/23/2024 7:43 AM [employer] PRESS OPERATOR Pulse 76 03/23/2024 7:43 AM [employer] PRESS OPERATOR Temperature 36.7 C (98 F) 12/16/2023 8:52 AM CDT Respiratory Rate 18 12/16/2023 8:52 AM CDT Oxygen Saturation 100% 03/23/2024 7:43 AM [employer] PRESS OPERATOR Inhaled Oxygen Concentration - - Weight 64.8 kg (142 lb 12.8 oz) 03/23/2024 7:43 AM [employer] PRESS OPERATOR Height 175.3 cm (5' 9) 12/16/2023 8:52 AM CDT Body Mass Index 21.09 12/16/2023 8:52 AM CDT Plan of Treatment Upcoming Encounters Date Type Department Care Team (Late st Contact Info) Description 04/04/2024 8:45 AM [employer] BLOCK[employer] PRESS OPERATOR Appointment [facility] [address] [place] [address] Gladys Barrera, PT [address] [place] [address] 04/04/2024 2:30 PM [employer] BLOCK[employer] PRESS OPERATOR Office Visit [facility] [place] [address] [place] [address] Mónica Vega, COLLECTIONS ASSOCIATE [address] [place] [address] 04/04/2024 3:00 PM [employer] BLOCK[employer] PRESS OPERATOR Office Visit [facility] [address] [place] [address] Vijay Garcia L Ac [address] [place] [address] 04/11/2024 8:00 AM [employer] BLOCK[employer] PRESS OPERATOR Appointment [facility] [address], [place] [address] Gladys Barrera, PT [address] [place] [address] 04/11/2024 2:30 PM [employer] BLOCK[employer] PRESS OPERATOR Office Visit [facility] [address] [place] [address] Mónica Vega, COLLECTIONS ASSOCIATE [address] [place] [address] 04/11/2024 3:00 PM [employer] BLOCK[employer] PRESS OPERATOR Office Visit [facility] [address] [place] [address] Vijay Garcia, L Ac [address] [place] [address] 04/18/2024 9:30 AM [employer] BLOCK[employer] PRESS OPERATOR Appointment [facility] [address] [place] [address] Gladys Barrera, PT [address] [place] [address] 04/18/2024 2:30 PM CAR[employer] BLOCK[employer] PRESS OPERATOR Office Visit [facility] [address] [place] [phone] Mónica Vega, COLLECTIONS ASSOCIATE [address] [place] [address] 04/18/2024 3:00 PM CAR[employer] BLOCK[employer] PRESS OPERATOR Office Visit [facility] [address] [place] [address] Vijay Garcia, L Ac [address] [place] [address] 04/24/2024 8:00 AM [employer] BLOCK[employer] PRESS OPERATOR Office Visit [facility] [address] [place] [address] Pina Gr NP [address] [place] [address] 04/25/2024 9:30 AM CAR[employer] BLOCK[employer] PRESS OPERATOR Appointment [facility] [address] [place] [address] Gladys Barrera, PT [address] [place] [address] 04/25/2024 2:30 PM [employer] BLOCK[employer] PRESS OPERATOR Office Visit [facility] [address] [place] [address] Mónica Vega, COLLECTIONS ASSOCIATE [address] [place] [address] 04/25/2024 3:00 PM [employer] BLOCK[employer] PRESS OPERATOR Office Visit [facility] [address] [place] [address] Vijay Garcia, L Ac [address] [place] [address] 05/02/2024 9:30 AM [employer] BLOCK[employer] PRESS OPERATOR Appointment [facility] [address] [place] [address] Gladys Barrera, PT [address] [place] [address] 05/02/2024 2:30 PM [employer] BLOCK[employer] PRESS OPERATOR Office Visit [facility] [address] [place] [address] Mónica Vega, BRIANA [address] [place] [address] 05/02/2024 3:00 PM [employer] PRESS OPERATOR Office Visit [facility] [address] [place] [address] Vijay Garcia L [address] [place] [address] 05/09/2024 9:30 AM CAR[employer] BLOCK[employer] PRESS OPERATOR Appointment [facility] [address] [place] [address] Gladys Barrera, PT [address] [place] [address] 05/09/2024 2:30 PM CAR[employer] BLOCK[employer] PRESS OPERATOR Office Visit [facility] [address] [place] [address] Mónica Vega, COLLECTIONS ASSOCIATE [address] [place] [address] 05/09/2024 3:00 PM CAR[employer] BLOCK[employer] PRESS OPERATOR Office Visit [facility] [address] [place] [address] Vijay Garcia, L Ac [address] [place] [address] 05/16/2024 9:30 AM CARBON BLOCKS PRESS OPERATOR [facility] [address] [place] [address] Gladys Barrera, PT [address] [place] [address] 05/16/2024 2:30 PM CARBON BLOCKS PRESS OPERATOR Office Visit [facility] [address] [place] [phone] Mónica Vega, BRIANA [address] [place] [address] 05/16/2024 3:00 PM [employer] BLOCK[employer] PRESS OPERATOR Office Visit [facility] [address] [place] [address] Vijay Garcia, Jerry Ac [address] [place] [address] 05/23/2024 2:30 PM CAR[employer] BLOCK[employer] PRESS OPERATOR Office Visit [facility] [address] [place] [phone] Mónica Vega, COLLECTIONS ASSOCIATE [address] [place] [address] 05/23/2024 3:00 PM CAR[employer] BLOCK[employer] PRESS OPERATOR Office Visit [facility] [address] [place] [address] Vijay Garcia L Ac [address] [place] [address] 07/19/2024 2:30 PM CDT Office Visit [facility] [address] [place] [address] Mónica Vega, BRIANA [address] [place] [address] 07/19/2024 3:00 PM CDT Office Visit [facility] [address] [place] [address] Vijay Garcia, Jerry Ac [address] [place], [place] [id number] Health Maintenance Due Date Last Done Comments HIV for age 15-65 1976 Influenza for age 50-64 11/21/2023 12/10/19, 12/15/2021, 11/04/2020, Additional history exists BMI (ht and wt on same day) for age 18+ 12/15/2024 12/16/2023, 08/23/2023, 06/03/2022, Additional history exists Depression screening for age 12+ 12/19/2024 12/20/2023, 08/23/2023, 08/17/2023, Additional history exists Lipids for age 45-75 08/22/2028 08/23/2023, 12/15/2021, 06/26/2020 (Verified in Care Everywhere or Patient Record) Tetanus booster 07/12/2030 07/12/2020, 06/21, 11/24/2011 (Completed outside of [facility]), Additional history exists Colonoscopy through age 75 09/02/203209/02, 09/02/2022, 09/02/2022, Additional history exists Hepatitis C screening for age 18-79 Addressed 03/29/2017 (Verified in Care Everywhere or Patient Record) Overridden with the intention of not completing the topic Tdap Completed 07/12/2020, 11/19/2011 Zoster (shingles) series for age 50+ Completed 10/22/2020, 07/12/2020 Pneumococcal series for age 50+ Completed 12/09/2022, 03/12/2021 RSV vaccine for adults or Completed 01/05/2023 COVID-19 vaccine series Completed 12/07/19 24, 01/05/2023, 03/04/2022, Additional history exists Procedures Procedure Name Priority Date/Time Associated Diagnosis Comments BASIC METABOLIC PANEL Routine 03/23/2024 7:35 AM [employer] PRESS OPERATOR Type 2 diabetes mellitus with complication, without long-term current use of insulin (HC) IRON PLUS IRON BINDING CAP Routine 03/23/2024 7:35 AM [employer] PRESS OPERATOR Biallelic mutation of HFE gene Elevated ferritin HEPATIC FUNCTION PANEL Routine 03/23/2024 7:35 AM [employer] PRESS OPERATOR Transaminitis HEMOGLOBIN A1C MONITORING (POCT) Routine 03/23/2024 7:34 AM [employer] PRESS OPERATOR Type 2 diabetes mellitus with complication, without long-term current use of insulin (HC) LIPID PANEL W REFLEX MEASURED LDL Routine 08/23/2023 9:45 AM CDT Hypertriglyceridemi a COLONOSCOPY SCREENING Routine 09/02/2022 7:44 AM CDT Screening for colon cancer from Last 3 Months or Most Recently Relevant to Health Maintenance Results * IRON PLUS IRON BINDING CAP (03/23/2024 7:35 AM CAR[employer] BLOCKS PRESS OPERATOR) IRON, TOTAL 84 50 - 180 mcg/dL [facility] IRON BINDING CAPACITY 348 250 - 425 mcg/dL (calc) [facility] % SATURATION 24 20 - 48 % (calc) [facility] Blood BLOOD SPECIMEN / Unknown 03/23/2024 7:35 AM CARBON BLOCKS PRESS OPERATOR 03/23/2024 7:35 AM [employer] BLOCK[employer] PRESS OPERATOR us Zuleyma Bolanos MD CHEMISTRY Final Resul t [email or web address] [facility] [address] [place] [address], [facility] [address] [place] [address] * LIVER PANEL (HEPATIC FUNCTION PANEL) (03/23/2024 7:35 AM CAR[employer] BLOCK[employer] PRESS OPERATOR) PROTEIN, TOTAL 7.2 6.1 - 8.1 g/dL [facility] ALBUMIN 4.7 3.6 - 5.1 g/dL [facility] GLOBULIN 2.5 1.9 - 3.7 g/dL (calc) [facility] ALBUMIN/GLOBULIN RATIO 1.9 1.0 - 2.5 (calc) [facility] BILIRUBIN, TOTAL 0.3 0.2 - 1.2 mg/dL [facility] BILIRUBIN, DIRECT 0.1 < OR = 0.2 mg/dL [facility] BILIRUBIN, INDIRECT 0.2 0.2 - 1.2 mg/dL (calc) [facility] ALKALINE PHOSPHATASE 113 35 - 144 U/L [facility] AST 24 10 - 35 U/L [facility] ALT 35 9 - 46 U/L [facility] Blood BLOOD SPECIMEN / Unknown 03/23/2024 7:35 AM [employer]ON BLOCKS PRESS OPERATOR 03/23/2024 7:35 AM CARBON BLOCKS PRESS OPERATOR us Zuleyma Bolanos MD CHEMISTRY Final Resul t [email or web address] [facility] [address] [place] [address], [facility] [address] [place] [address] * (ABNORMAL) BASIC METABOLIC PANEL (03/23/2024 7:35 AM CARBON BLOCKS PRESS OPERATOR) Pathologist [facility] GLUCOSE 129(H) 65 - 99 mg/dL [facility] Comment: Fasting reference interval For someone without known diabetes, a glucose value >125 mg/dL indicates that they may have diabetes and this should be confirmed with a follow-up test. UREA NITROGEN (BUN) 30(H) 7 - 25 mg/dL [facility] CREATININE 1.17 0.70 - 1.35 mg/dL [facility] EGFR 70 > OR = 60 mL/min/1.7 3m2 [facility] BUN/CREATININE RATIO 26(H) 6 - 22 (calc) [facility] SODIUM 141 135 - 146 mmol/L [facility] POTASSIUM 4.3 3.5 - 5.3 mmol/L [facility] CHLORIDE 106 98 - 110 mmol/L [facility] CARBON DIOXIDE 24 20 - 32 mmol/L [facility] ELECTROLYTE BALANCE 11 7 - 17 mmol/L (calc) [facility] CALCIUM 9.8 8.6 - 10.3 mg/dL [facility] Blood BLOOD SPECIMEN / Unknown 03/23/2024 7:35 AM CARBON BLOCKS PRESS OPERATOR 03/23/2024 7:35 AM CARBON BLOCK[employer] PRESS OPERATOR us Zuleyma Bolanos MD CHEMISTRY Final Resul t [email or web address] [facility] [address] [place] [address], [place] [phone] [employer] [address] * (ABNORMAL) POCT Hemoglobin A1C Monitoring (03/23/2024 7:34 AM CARBON BLOCKS PRESS OPERATOR) POC HEMOGLOBIN A1C 7.7(H) <6.0 % OF TOTAL HGB [facility] Comment: Any point of care results exhibiting inconsistency with the patient's clinical status should be repeated using a different testing method. Blood BLOOD SPECIMEN / Unknown 03/23/2024 7:34 AM CARBON BLOCKS PRESS OPERATOR 03/23/2024 7:35 AM CARBON BLOCKS PRESS OPERATOR us Zuleyma Bolanos MD CHEMISTRY Final Resul t Performing Organization Address City/[facility]/ZIP Co de Phone Number [facility] [address] [place] [address], [place] [phone] [facility] [address] [place] [address] * LIPID PANEL W REFLEX MEASURED LDL (08/23/2023 9:45 AM CDT) CHOLESTEROL,TOTAL 153 100 - 199 mg/dL 08/23/2023 7:23 PM CDT [facility] Comment: Cholesterol, Total Reference Ranges Desirable <200 mg/dL Borderline 200-239 mg/dL High >=240 mg/dL TRIGLYCERIDES 122 <150 mg/dL 08/23/2023 7:23 PM CDT [facility] HDL CHOLESTEROL 48 >40 mg/dL 7:23 PM CDT [facility] NON-HDL CHOLESTEROL 105 <145 mg/dl 08/23/2023 7:23 PM CDT [facility] CHOL/HDL RATIO 3.19 <4.50 08/23/2023 7:23 PM CDT [facility] LDL CHOLESTEROL 81 <=130 mg/dL 08/23/2023 7:23 PM CDT [facility] VLDL CHOLESTEROL 24 <=30 mg/dL 08/23/2023 7:23 PM CDT [facility] PROVIDER ORDERED STATUS RANDOM 08/23/2023 7:23 PM CDT [facility] Blood BLOOD SPECIMEN / Unknown Venipuncture / Unknown 08/23/2023 9:45 AM CDT 08/23/2023 9:46 AM CDT us Zuleyma Bolanos MD CHEMISTRY Final Resul t [facility] [facility] [address] [place] [address], * COLONOSCOPY (09/02/2022 7:39 AM CDT) 09/02/2022 7:39 AM CDT Narrative Transcriptions Selwyn Tilley MD - 09/02/2022 9:16 AM CDT Patient Name: Ryan Bagley Procedure Date: 09/02/2022 Gender: Male Date of : 1960 Admit Type: Outpatient Procedure: Colonoscopy Proceduralist: Selwyn Tilley MD , Snehal Pak, KAREN (Nurse), Cheyenne De Anda (Nurse) Referring MD: Patience Figueroa Indications/Pre-Op Diagnosis: Screening for colorectal malignant neoplasm, Last colonoscopy: March 2012 Medications: Fentanyl 200 micrograms IV, Midazolam 4 mgIV, The level of sedation administered wasmoderate Procedure Description: The patient had risks, benefits and alternatives explained to andgave informed consent. The patient had a stable cardiopulmonary status and judged an adequate candidate for conscious sedation. The PCF-H190L [id number] was passed through the anus and advanced to the terminal ileum. The colonoscopy was performed without difficulty. The patient tolerated the procedure well. The quality of the bowel preparation was good. The ileocecal valve, appendiceal orifice, and rectum were photographed. Complications: No immediate complications. Estimated Blood Loss & Specimen: Estimated blood loss: none. Specimen collected - None Findings: The perianal and digital rectal examinations were normal. The terminal ileum appeared normal. The entire examined colon appeared normal. Impressions/Post-Op Diagnosis: - The examined portion of the ileum was normal. - The entire examined colon is normal. - No specimens collected. Recommendation: - Patient has a contact number available for emergencies. The signsand symptoms of potential delayed complications were discussed with the patient. Return to normal activities tomorrow. Written discharge instructions were provided to the patient. - Resume previous diet. - Continue present medications. - Repeat colonoscopy in 10 years for screening purposes. - Patient's sedation for a repeat study will require Anesthesia staff assistance. Moderate Sedation: A time out was performed before the procedure. Moderate (conscious) sedation was administered by the endoscopy nurse and supervised bythe endoscopist. The following parameters were monitored: oxygensaturation, heart rate, blood pressure, EKG, CO2, respiratory rate, adequacy of pulmonary ventilation and reponse to care. Please refer to the patient's medical record flowsheets and nursing notes for moderate sedation details. Total physician intraservice time was 14 minutes. Selwyn Tilley MD 09/02/2022 9:16:01 AM This report has been signed electronically. Note Initiated On: 09/02/2022 7:39 AM Procedure Code(s): --- Professional --- 31523, Colonoscopy, flexible; diagnostic, including collection of specimen(s) bybrushing or washing, when performed (separateprocedure) Diagnosis Code(s): --- Professional --- Z12.11, Encounter for screening formalignant neoplasm of colon CPT copyright 2021 [employer]. All rights reserved. The codes documented in this report are preliminary and upon building equipment operator reviewmay be revised to meet current compliance requirements. Scope In: 8:51:37 AM Scope Withdrawal Time 0 hours 7 minutes 9 seconds Scope Out: 9:03:42 AM Selwyn Tilley MD PROCEDURE ORD Final Res ult from Last 3 Months or Most Recently Relevant to Health Maintenance Insurance [facility] AD[facility]ANT[facility] MEDICARE PB ONLY MEDICARE PART B HB ONLY Care Teams Switcher Relationship Specialty Start Date End Date Zuleyma Bolanos MD [address] [place] [address] PCP - General Family Practice 08/06/22
--- OUTSIDE RECORDS SUMMARY | 2024-03-29 22:19 | XMS_ITS | Encounter Summary ---
Author Organization [facility] Address [address] [place] [address]. [place] [address] Care Team Providers Care Software Engineering Associate Manager Name Role Phone Homero Renteria MD Primary Care Provider [phone] Ref-Primary, Physician Primary Care Provider Kristie Barrientos APRN [employer] Primary Care Provid er Creagan, Kristie Zamora APRN [employer] Unavailable Creagagilbert, Kristie Zamora APRN [employer] Unavailable Creagan, Kristie Zamora APRN [employer] Unavailable Reason for Referral * Vision Services - Closed Specialty Diagnoses / Procedures Referred By Jimmie t Referred To Contact Diagnoses Dry eyes Keratoconjunctivitis sicca, not specified as Sjogren's, bilateral Kristie Barrientos APRN [employer] [address] [place] [address] Phone: tel: fax: NON [facility] [address] [place] [phone] Referral ID Status Reason Start Date Expiration Date Visits Re quested Visits Authorized [id number] Closed 07/27/2016 07/27/2017 1 1 Comments Your provider has referred you to: [facility]. Please be aware that coverage of these services is subject to the terms and limitations of your health insurance plan. Call member services at your health plan with any benefit or coverage questions. Please bring the following with you to your appointment: (1) Any X-Rays, CTs or MRIs which have been performed. Contact the facility where they were done to arrange for hand picker prior to your scheduled appointment. (2) List of current medications (3) This referral request (4) Any documents/labs given to you for this referral Reason for Visit * Reason Onset Date Comments Patient Request 07/27/2016 Order - Referral Encounter Details Date Type Department Care Team (Late st Contact Info) Description 07/27/[address] 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 Patient to call insurance to see what meter is covered then will call back to clinic to see if we have them available to give him one. 2. Given phone number to schedule diabetes ed appt, assures RN he will set this up. 3. Patient advised of lab results and need to start Lopid and Metformin, reviewed dosing of each with patient. Garth Nicole R.N. * Telephone Encounter - Delmy Nicole RN - 07/27/2016 2:14 PM CDT Anna, will you please contact the patient about the referral. Garth Nicole R.N. * Telephone Encounter - Anna Wade - 07/27/2016 1:25 PM CDT This patient has an HMO insurance and should be staying within the [facility] network. I can contact patient and make sure that he is aware of this and either redirect or let him know that this is a ONE timereferral. Any future ophthalmology referrals need to be within the [facility] network. Anna (covering for [facility]) Referrals - Zane * Telephone Encounter - Xuan Nix MD - 07/27/2016 11:45 AM CDT Referral has been signed * Telephone Encounter - Jaja Montgomery RN - 07/27/2016 10:27 AM CDT Referral pended. Provider please review and advise. * Telephone Encounter - Wellington Sanchez - 07/27/2016 9:15 AM CDT Reason for Call: Request for an order or referral:Order Order or referral being requested: Referral Date needed: as soon as possible Has the patient been seen by the PCP for this problem? YES Additional comments: Pt requesting referral to be mailed to [facility] [address] [place] [address], [place] [address] ( ). Insurance requires referral. Needed for chronic dry eye. Phone number Patient can be reached at: Cell number on file: Telephone Information: Best Time: anytimef Can we leave a detailed message on this number? YES Call taken on 07/27/2016 at 9:15 AM by WELLINGTON SANCHEZ documented in this encounter Plan of Treatment Scheduled Referrals Name Type Priority Associated Diagnoses Orde r Schedule OPHTHALMOLOGY ADULT REFERRAL Referral Routine Dry eyes Ordered: 07/27/2016 documented as of this encounter Visit Diagnoses Diagnosis Dry eyes- Primary Tear film insufficiency, unspecified documented in this encounter Care Teams Software Engineering Associate Manager Relationship Specialty Start Date End Date Homero Renteria MD PCP - General Internal Medicine 01/13/10 08/10/16 No Ref-Primary, Physician PCP - General 08/11/16 09/27/16 Kristie Barrientos APRN [employer] [address] [place], [place] [address] PCP - General Nurse Practitioner - Family 09/28/16 Kristie Barrientos APRN [employer] [address] [place] [address] PCP - Assigned PCP 08/16/16 05/24/18 Kristie Barrientos APRN [employer] [address] [place] [address] Assigned PCP 08/16/16 03/06/22 Kristie Barrientos APRN [employer] [address] [place] [address] Assigned PCP 05/16/22 08/11/23 documented as of this encounter
--- OUTSIDE RECORDS SUMMARY | 2024-03-29 22:19 | XMS_ITS | Encounter Summary ---
Author Organization [facility] Address [address] [place] [address] Care Team Providers Care Ferry Terminal Supervisor Name Role Phone Kristie Barrientos APRN, CNP Primary Care Provid er TerriagaKristie hunt APRN MATERIAL YARD CLERK Unavailable [phone] TerriagaKristie hunt APRN MATERIAL YARD CLERK Unavailable [phone] Reason for Visit * Reason Comments Medication Refill Encounter Details Date Type Department Care Team (Late st Contact Info) Description 01/26/2020 Refill [facility] [address] [facility] [address] [place] [address] Kristie Barrientos APRN [facility] [address] [place] [address] Medication Refill Social History Tobacco Use Types Packs/Day Years Used Date Smoking Tobacco: Never Smokeless Tobacco: Never Alcohol Use Standard Drinks/Week Comments No 0 (1 standard drink = 0.6 oz pur e alcohol) PHQ-2 Answer Date Recorded PHQ-2 Score 1 11/30/2019 Sex and Gender Information Value Date Recorded Sex Assigned at Not on file Legal Sex Male 3:24 AM PREPRINT ANALYST Gender Identity Not on file Sexual Orientation Not on file 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 RINT ANALYST documented in this encounter Plan of Treatment Not on file documented as of this encounter Visit Diagnoses Diagnosis Vitamin D deficiency Unspecified vitamin D deficiency documented in this encounter Additional Health Concerns Assessment Noted Time PHQ-9 Depression Total Score: 6 11/30/19 20 8:00 AM CDT documented as of this encounter Care Teams Ferry Terminal Supervisor Relationship Specialty Start Date End Date Kristie Barrientos APRN MATERIAL YARD CLERK [address] [place] [address] PCP - General Nurse Practitioner - Family 09/28/16 Kristie Barrientos APRN MATERIAL YARD CLERK [address] [place] [address] Assigned PCP 08/16/16 03/06/22 Kristie Barrientos APRN MATERIAL YARD CLERK [address] [place] [address] Assigned PCP 05/16/22 08/11/23 documented as of this encounter
--- OUTSIDE RECORDS SUMMARY | 2024-03-29 22:19 | XMS_ITS | Encounter Summary ---
Author Organization [facility] Address [address] [place] [address] Care Team Providers Care Cuff Runner Name Role Phone Kristie Barrientos APRN, CNP Primary Care Provid er Creagan, Kristie Zamora APRN BARBER Unavailable [phone] Creagan, Kristie Zamora APRN BARBER Unavailable [phone] Creagan, Kristie Zamora APRN BARBER Unavailable [phone]- [phone] Reason for Visit * Reason Onset Date Comments Diabetes Education 02/03/2018 Encounter Details Date Type Department Care Team (Late st Contact Info) Description 02/03/[address] [place] [address] Kristie Barrientos APRN [facility] [address] [place] [address] Diabetes Education Social History Tobacco Use Types Packs/Day Years Used Date Smoking Tobacco: Never Smokeless Tobacco: Never Alcohol Use Standard Drinks/Week Comments No 0 (1 standard drink = 0.6 oz pur e alcohol) Sex and Gender Information Value Date Recorded Sex Assigned at Not on file Legal Sex Male 3:24 AM BABCOCK TESTER Gender Identity Not on file Sexual Orientation Not on file 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 Left message with phone number to call to schedule. Plan for 2nd outreach attempt within 1 week. Cameron Ramires Diabetes and Nutrition Scheduling OCK TESTER documented in this encounter Plan of Treatment Not on file documented as of this encounter Visit Diagnoses Not on filedocumented in this encounter Care Teams Cuff Runner Relationship Specialty Start Date End Date Kristie Barrientos APRN BARBER [address] [place] [address] PCP - General Nurse Practitioner - Family 09/28/16 Kristie Barrientos APRN [facility]NP [address] [facility] [place] [address] PCP - Assigned PCP 08/16/16 05/24/18 Kristie Barrientos APRN CNP [address] [address] Assigned PCP 08/16/16 03/06/22 Kristie Barrientos APRN [facility]BER [address] [place] [address] Assigned PCP 05/16/22 08/11/23 documented as of this encounter
--- OUTSIDE RECORDS SUMMARY | 2024-03-29 22:20 | XMS_ITS | Encounter Summary ---
Author Organization [facility] Address [address] [place] [address] Care Team Providers Care Fingernail Technician Name Role Phone Valdemar Richard MD Primary Care Provider [phone] Homero Renteria MD Primary Care Provider [phone] Ref-Primary, Physician Primary Care Provider Kristie Barrientos APRN PARKING ENFORCEMENT SPECIALIST Primary Care Provid er Creagan, Kristie Zamora APRN PARKING ENFORCEMENT SPECIALIST Unavailable [phone] CreagaKristie hunt APRN PARKING ENFORCEMENT SPECIALIST Unavailable [phone] CreaganKristie APRN PARKING ENFORCEMENT SPECIALIST Unavailable [phone] Encounter Details Date Type Department Care Team (Late st Contact Info) Description 08/27/[address] [place] [address] Valdemar Richard MD [facility] [employer] [facility] [address] [place] [address] [place] (Primary Dx) Social History Tobacco Use Types Packs/Day Years Used Date Smoking Tobacco: Never Smokeless Tobacco: Never Alcohol Use Standard Drinks/Week Comments No 0 (1 standard drink = 0.6 oz pur e alcohol) Sex and Gender Information Value Date Recorded Sex Assigned at Not on file Legal Sex Male 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 GREENS KEEPER Gender Identity Not on file Sexual Orientation Not on file 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 Not on file documented as of this encounter Plan of Treatment Not on file documented as of this encounter Visit Diagnoses Diagnosis [place] [facility]- Primary documented in this encounter Care Teams Fingernail Technician Relationship Specialty Start Date End Date Valdemar Richard MD [facility] [employer] [address] [place] [address] PCP - General 05/05/02 01/12/10 Homero Renteria MD [facility] [address] [place] [address] PCP - General Internal Medicine 01/13/10 08/10/16 No Ref-Primary, Physician PCP - General 08/11/16 09/27/16 Kristie Barrientos APRN PARKING ENFORCEMENT SPECIALIST [address] [place] [address] PCP - General Nurse Practitioner - Family 09/28/16 Kristie Barrientos APRN PARKING ENFORCEMENT SPECIALIST [address] [place] [address] PCP - Assigned PCP 08/16/16 05/24/18 Kristie Barrientos APRN PARKING ENFORCEMENT SPECIALIST [address] [place] [address] Assigned PCP 08/16/16 03/06/22 Kristie Barrientos APRN PARKING ENFORCEMENT SPECIALIST [address] [place] [address] Assigned PCP 05/16/22 08/11/23 documented as of this encounter
--- OUTSIDE RECORDS SUMMARY | 2024-03-29 22:20 | XMS_ITS | Encounter Summary ---
Author Organization [facility] Address [address] [place] [address] Care Team Providers Care Carbon Sequestration Plant Engineer Name Role Phone Valdemar Richard MD Primary Care Provider [phone] Doctor, Tariq JAMES Primary Care Provider UnavailHomero Hernández MD Primary Care Provider [phone] Ref-Primary, Physician Primary Care Provider CreaganKristie APRN HALF SECTION IRONER Primary Care Provid er Creagan, Kristie Zamora APRN HALF SECTION IRONER Unavailable [phone] Creagan, Kristie Zamora APRN HALF SECTION IRONER Unavailable [phone] Creagan, Kristie Zamora APRN HALF SECTION IRONER Unavailable [phone] Encounter Details Date Type Department Care Team (Late st Contact Info) Description 11/10/[address] [place] [address] 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 Not on file documented as of this encounter Plan of Treatment Not on file documented as of this encounter Visit Diagnoses Not on filedocumented in this encounter Care Teams Carbon Sequestration Plant Engineer Relationship Specialty Start Date End Date Valdemar Richard MD [facility] [id number] [place] [address] PCP - General 05/05/02 01/12/10 Tariq Berry MD PCP - General 05/06/01 05/04/02 Homero Renteria MD PCP - General Internal Medicine 01/13/10 08/10/16 No Ref-Primary, Physician PCP - General 08/11/16 09/27/16 Kristie Barrientos APRN HALF SECTION IRONER [address] [place] [address] PCP - General Nurse Practitioner - Family 09/28/16 Kristie Barrientos APRN HALF SECTION IRONER [address] [place] [address] PCP - Assigned PCP 08/16/16 05/24/18 Kristie Barrientos APRN HALF SECTION IRONER [address] [place] [address] Assigned PCP 08/16/16 03/06/22 Kristie Barrientos APRN HALF SECTION IRONER [address] [place] [address] Assigned PCP 05/16/22 08/11/23 documented as of this encounter
--- OUTSIDE RECORDS SUMMARY | 2024-03-29 22:20 | XMS_ITS | Encounter Summary ---
Author Organization [facility] Address [address] [place] [address] Care Team Providers Care Field Health Officer Name Role Phone Valdemar Richard MD Primary Care Provider [phone] Homero Renteria MD Primary Care Provider [phone] Ref-Primary, Physician Primary Care Provider Kristie Barrientos APRN LABEL PASTER Primary Care Provid er Creagan, Kristie Zamora APRN LABEL PASTER Unavailable [phone] TerriagaKristie hunt APRN LABEL PASTER Unavailable [phone] CreagaKristie hunt APRN LABEL PASTER Unavailable [phone] Encounter Details Date Type Department Care Team (Late st Contact Info) Description 01/28/[address] [place] [address] Valdemar Richard MD [facility] [address] [place] [address] [facility] H & P REPORT (Primary Dx) Social History Tobacco Use Types Packs/Day Years Used Date Smoking Tobacco: Never Smokeless Tobacco: Never Alcohol Use Standard Drinks/Week Comments No 0 (1 standard drink = 0.6 oz pur e alcohol) Sex and Gender Information Value Date Recorded Sex Assigned at Not on file Legal Sex Male 3:24 AM PREPRESS PROOFER Gender Identity Not on file Sexual Orientation Not on file 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 Not on file documented as of this encounter Plan of Treatment Not on file documented as of this encounter Visit Diagnoses Diagnosis [facility] H & P REPORT- Primary documented in this encounter Care Teams Field Health Officer Relationship Specialty Start Date End Date Valdemar Richard MD [facility] [address] [place] [address] PCP - General 05/05/02 01/12/10 Homero Renteria MD [facility] [address] [place] [address] PCP - General Internal Medicine 01/13/10 08/10/16 No Ref-Primary, Physician PCP - General 08/11/16 09/27/16 Kristie Barrientos APRN LABEL PASTER [address] [place] [address] PCP - General Nurse Practitioner - Family 09/28/16 Kristie Barrientos APRN LABEL PASTER [address] [place] [address] PCP - Assigned PCP 08/16/16 05/24/18 Kristie Barrientos APRN LABEL PASTER [address] [place] [address] Assigned PCP 08/16/16 03/06/22 Kristie Barrientos APRN LABEL PASTER [address] [place] [address] Assigned PCP 05/16/22 08/11/23 documented as of this encounter
--- OUTSIDE RECORDS SUMMARY | 2024-03-29 22:20 | XMS_ITS | Encounter Summary ---
Author Organization [facility] Address [address] [place] [address] Care Team Providers Care Rehab Director Occupational Therapist Name Role Phone Valdemar Richard MD Primary Care Provider [phone] Doctor, Tariq JAMES Primary Care Provider UnavailHomero Hernández MD Primary Care Provider [phone] Ref-Primary, Physician Primary Care Provider CreaganKristie APRN EMS DIRECTOR Primary Care Provid er Creagan, Kristie Zamora APRN EMS DIRECTOR Unavailable [phone]- [phone] Creagan, Kristie Zamora APRN EMS DIRECTOR Unavailable [phone]- [phone] Creagan, Kristie Zamora APRN EMS DIRECTOR Unavailable [phone]- [phone] Encounter Details Date Type Department Care Team (Late st Contact Info) Description 12/09/[address] [place] [address] 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 INDICATION FOR PROCEDURE: A 41-year-old gentleman with asthma, sarcoid osis, history of reflux, status post Brayan fundoplication, some reflux of late which is better now s fan he doubled up on his Nexium. Again history of Coombs's so we are rechecking that. ALLERGIES TO AMOXICILLIN, ERYTHROMYCIN, AND CEFALEXIN. Heart and lungs unremarkable. MEDICATIONS: Sublimaze 0.1 mg, Versed 4 mg. Hurricaine spray to the pharynx. FINDINGS: After obtaining informed consent, inc luding especially medication reaction with risk of bleeding and after administration of pre- medicati on and Hurricaine spray to pharynx, the Olympus videoendoscope was passed under direct vision. [place] of the esophagus showed the Coombs's transition to about 37 cm. Pictures were taken. Biopsi es were taken. The Brayan seems to be fairly open, a picture was taken from below. Again, it looks a patulous, a picture was taken. Stomach examination shows retained food in the stomach, last time h e ate was 1:00 p.m. yesterday or about 24 hours ago. There is some diabetes in the family. Duodenal bulb and second portion unremarkable. The patient tolerate the procedure well and after taking the Ramu portillo's biopsies, the procedure was terminated. ASSESSMENT: 1. History of Coombs's -- biopsy repo rt. 2. Delayed gastric emptying. 3. Question of slipped Brayan. RECOMMENDATION: Let us check a fa sting blood sugar. He will stay on his Nexium double dose. He will call for biopsy report and fasti ng blood sugar result next week. We will go from there with Dr. Richard as usual. [id number] VEENA HUDDLESTON MD MT: Document: [id number] [place], [place] Name: OLIVIA MELGAR LCN: ENDO DSC: 12/09/2001 [place], [place] Name: MR#: : Procedure Date: OLIVIA MELGAR [id number] Doctor: KRISTA HUDDLESTON MD OPERATIVE REPORT Page 1 of 2 Electronically filed by Alivia Jiménez 12/23/2001 11:04 AM documented in this encounter Plan of Treatment Not on file documented as of this encounter Visit Diagnoses Not on filedocumented in this encounter Care Teams Rehab Director Occupational Therapist Relationship Specialty Start Date End Date Valdemar Richard MD [place] [address] [place] [address] PCP - General 05/05/02 01/12/10 Tariq Berry MD PCP - General 05/06/01 05/04/02 Homero Renteria MD PCP - General Internal Medicine 01/13/10 08/10/16 No Ref-Primary, Physician PCP - General 08/11/16 09/27/16 Kristie Barrientos APRN EMS DIRECTOR [address] [place], [place] [address] PCP - General Nurse Practitioner - Family 09/28/16 Kristie Barrientos APRN EMS DIRECTOR [address] [place], [place] [address] PCP - Assigned PCP 08/16/16 05/24/18 Kristie Barrientos APRN EMS DIRECTOR [address] [place] [address] Assigned PCP 08/16/16 03/06/22 Kristie Barrientos APRN EMS DIRECTOR [address] [place] [address] Assigned PCP 05/16/22 08/11/23 documented as of this encounter
[2024-03-29 22:33] VITALS: BP 151/76; PULSE 75; RESP 18; TEMP 36.6; O2SAT 99; BMI 25.1
--- NOTE | 2024-03-29 23:08 | CRLHL7_ITS ---
For Patients: As a result of the Century Cures Act, medical imaging exams and procedure reports are released immediately into your electronic medical record. You may view this report before your referring provider. If you have questions, please contact your health care provider. INDICATION: Abdominal pain, right upper quadrant pain. TECHNIQUE: CT abdomen and pelvis acquired with 83 cc Omnipaque 350 IV contrast. COMPARISON: May 19, 2022. FINDINGS: Lower chest: Unremarkable. Liver: Mild decreased hepatic attenuation. No suspicious masses. Gallbladder and bile ducts: Prior cholecystectomy. Pancreas: Unremarkable. No mass or inflammation. Spleen: Unremarkable. Normal in size. No masses. Adrenal glands: Unremarkable. No nodules. Kidneys: Tiny cortical hypodensities, too small to characterize. No suspicious masses, stones, or hydronephrosis. GI tract: Postsurgical changes about the GE junction. No bowel obstruction. Mild colonic stool burden. Vasculature: Abdominal aorta is normal in caliber. Mesenteric arteries are patent. Lymph nodes: No lymphadenopathy. Peritoneum/Abdominal Wall: Unremarkable. No sign of mass or infiltration. No free air or significant free fluid. Pelvis: Unremarkable. Bones: Unremarkable for age. IMPRESSION: No acute intra-abdominal/pelvic abnormality or significant interval change when compared to prior study. Please note that all CT scans at this facility use dose modulation, iterative reconstruction, and/or weight-based dosing when appropriate to reduce radiation dose to as low as reasonably achievable. Dictated by Km Mckeon MD @ 03/29/2024 11:51:28 PM (Electronically Signed)
[2024-03-29 23:21] LABS: Creatinine, Point-of-Care* 1.1 mg/dl (0.6-1.3)
[2024-03-29 23:24] LABS: Basophils Absolute Auto 0.06 K/uL (0.00-0.30); Basophils Percent Auto 0.7 % (0.0-3.0); Eosinophils Absolute Auto 0.15 K/uL (0.00-0.50); Eosinophils Percent Auto 1.8 % (0.0-7.0); Hematocrit 41.8 % (37.0-53.0); Hemoglobin* 13.7 gm/dL (13.5-17.5); Immature Granulocytes Abs Auto 0.07 K/uL (0.00-0.30); Immature Granulocytes Pct Auto 0.9 %; Lymphocytes Percent Auto 16.7 % (20-44); Mean Corpuscular HGB Conc 33 gm/dL (32-36); Mean Corpuscular Hemoglobin 29 pg (26-34); Mean Corpuscular Volume 89 fL (80-100); Neutrophils Absolute Auto 5.74 K/uL (1.7-7.0); Neutrophils Percent Auto 69.9 % (42.0-72.0); Platelet Count* 225 K/uL (140-440); RDW Coefficient of Variation % 13.3 % (11.5-15.5); Red Blood Count 4.71 m/uL (4.30-5.90); White Blood Count* 8.21 K/uL (4.50-11.00)
[2024-03-29 23:25] LABS: Slide Review Reflex No
--- OUTSIDE RECORDS SUMMARY | 2024-03-29 23:40 | XMS_ITS | Encounter Summary ---
Author Organization [facility] Address [address] [place] [address] Care Team Providers Care Ink Technician Name Role Phone Kristie Barrientos APRN, CNP Primary Care Provid er TerriagaKristie hunt APRN MOLD MAKER HELPER Unavailable [phone] TerriagaKristie hunt APRN MOLD MAKER HELPER Unavailable [phone]- [phone] Reason for Visit * Reason Comments Medication Refill Encounter Details Date Type Department Care Team (Late st Contact Info) Description 12/15/2020 Refill [facility] [address] [facility] [address] [place] [address] Kristie Barrientos APRN [facility] [address] [place] [address] Medication Refill Social History Tobacco Use Types Packs/Day Years Used Date Smoking Tobacco: Never Smokeless Tobacco: Never Alcohol Use Standard Drinks/Week Comments No 0 (1 standard drink = 0.6 oz pur e alcohol) PHQ-2 Answer Date Recorded PHQ-2 Score 1 11/30/2019 Sex and Gender Information Value Date Recorded Sex Assigned at Not on file 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 Refill Protocol. documented in this encounter Plan of Treatment Not on file documented as of this encounter Visit Diagnoses Diagnosis Anxiety Anxiety state, unspecified documented in this encounter Additional Health Concerns Assessment Noted Time PHQ-9 Depression Total Score: 6 11/30/19 20 8:00 AM CDT documented as of this encounter Care Teams Ink Technician Relationship Specialty Start Date End Date Kristie Barrientos APRN MOLD MAKER HELPER [address] [place] [address] PCP - General Nurse Practitioner - Family 09/28/16 Kristie Barrientos APRN CNP [address] [place] [address] Assigned PCP 08/16/16 03/06/22 Kristie Barrientos APRN MOLD MAKER HELPER [address] [place] [address] Assigned PCP 05/16/22 08/11/23 documented as of this encounter
--- OUTSIDE RECORDS SUMMARY | 2024-03-29 23:40 | XMS_ITS | Referral Summary ---
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
--- OUTSIDE RECORDS SUMMARY | 2024-03-29 23:40 | XMS_ITS | Encounter Summary ---
Author Organization [facility] Address [address] [place] [address] Care Team Providers Care Oracle Sql Developer Name Role Phone Kristie Barrientos APRN, CNP Primary Care Provid er TerriagaKristie hunt APRN ENERGY TECHNICIAN Unavailable [phone]- [phone] TerriagaKristie hunt APRN ENERGY TECHNICIAN Unavailable Reason for Visit * Reason Comments Medication Refill Encounter Details Date Type Department Care Team (Late st Contact Info) Description 08/22/2019 [facility] [address] [facility] [address] [place] [address] Kristie Barrientos APRN [facility] [address] [place], [place] [id number] Medication Refill Social History Tobacco Use Types Packs/Day Years Used Date Smoking Tobacco: Never Smokeless Tobacco: Never Alcohol Use Standard Drinks/Week Comments No 0 (1 standard drink = 0.6 oz pur e alcohol) PHQ-2 Answer Date Recorded PHQ-2 Score 0 03/29/2018 Sex and Gender Information Value Date Recorded Sex Assigned at Not on file 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
--- OUTSIDE RECORDS SUMMARY | 2024-03-29 23:40 | XMS_ITS | Encounter Summary ---
Author Organization [facility] Address [address] [place] [address] Care Team Providers Care Linotyper Name Role Phone Kristie Barrientos APRN, CNP Primary Care Provid er TerriagaKristie hunt APRN TRIPLE DRUM OPERATOR Unavailable [phone]- [phone] TerriagaKristie hunt APRN TRIPLE DRUM OPERATOR Unavailable +1- [phone] Reason for Visit * Reason Comments Medication Refill Encounter Details Date Type Department Care Team (Late st Contact Info) Description 01/26/2020 Refill [facility] [address] [facility] [address] [place] [address] Kristie Barrientos APRN [facility] [address] [place] [address] Medication Refill Social History Tobacco Use Types Packs/Day Years Used Date Smoking Tobacco: Never Smokeless Tobacco: Never Alcohol Use Standard Drinks/Week Comments No 0 (1 standard drink = 0.6 oz pur e alcohol) PHQ-2 Answer Date Recorded PHQ-2 Score 1 11/30/2019 Sex and Gender Information Value Date Recorded Sex Assigned at Not on file Legal Sex Male 3:24 AM NUTRITIONAL SERVICES DIRECTOR Gender Identity Not on file Sexual Orientation Not on file 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 ITIONAL SERVICES DIRECTOR documented in this encounter Plan of Treatment Not on file documented as of this encounter Visit Diagnoses Diagnosis Vitamin D deficiency Unspecified vitamin D deficiency documented in this encounter Additional Health Concerns Assessment Noted Time PHQ-9 Depression Total Score: 6 11/30/19 20 8:00 AM CDT documented as of this encounter Care Teams Linotyper Relationship Specialty Start Date End Date Kristie Barrientos APRN TRIPLE DRUM OPERATOR [address] [place] [address] PCP - General Nurse Practitioner - Family 09/28/16 Kristie Barrientos APRN TRIPLE DRUM OPERATOR [address] [place] [address] Assigned PCP 08/16/16 03/06/22 Kristie Barrientos APRN TRIPLE DRUM OPERATOR [address] [place] [address] Assigned PCP 05/16/22 08/11/23 documented as of this encounter
--- OUTSIDE RECORDS SUMMARY | 2024-03-29 23:40 | XMS_ITS | Continuity of Care Document ---
Author Name [facility] User [email or web address] Address Unknown Organization Unknown Address Unknown Procedures FILTER APPLIED:Only known Procedures with Onset Date within the last 5 years Procedure Date Procedure Provider Additiona l Information Status ROUTINE VENIPUNCTURE (71410) Completed EMERGENCY DEPT VISIT HI MDM (43815) Completed COMPREHEN METABOLIC PANEL (64486) Completed BLOOD GASES ANY COMBINATION (91444) Completed ASSAY GLUCOSE BLOOD QUANT (56683) Completed ASSAY OF LACTIC ACID (49381) Completed ASSAY OF NATRIURETIC PEPTIDE (06311) Completed PROCALCITONIN (PCT) (98062) Completed ASSAY OF TROPONIN QUANT (70652) Completed COMPLETE CBC W/AUTO DIFF WBC (44030) Completed FIBRIN DEGRADATION QUANT (36478) Completed C-REACTIVE PROTEIN (11112) Completed RESP VIRUS 3-5 TARGETS (01731) Completed ELECTROCARDIOGRAM TRACING (50041) Completed MEASURE BLOOD OXYGEN LEVEL (16489) Completed EMERGENCY DEPT VISIT MOD MDM (65360) Completed X-RAY EXAM CHEST 2 VIEWS (85769) Completed Encounters FILTER APPLIED:Only known Encounters with Admission Date within the last 5 years Encounter Location Admission Discharge Billing Code Ct Scan Technician Attender Emergency Shannon Malcolm on Recurring Patient [id number] [facility] Recurring Patient [id number] [facility] Recurring Patient [id number] [facility]
--- OUTSIDE RECORDS SUMMARY | 2024-03-29 23:40 | XMS_ITS | Encounter Summary ---
Author Organization [facility] Address [address] [place] [address] Care Team Providers Care Fixed Income Trading Vice President Name Role Phone Kristie Barrientos APRN, CNP Primary Care Provid er TerriagaKristie hunt APRN STEEL SAMPLER Unavailable [phone]- [phone] TerriaganKristie APRN STEEL SAMPLER Unavailable [phone]- [phone] Reason for Visit * Reason Comments Medication Refill Encounter Details Date Type Department Care Team (Late st Contact Info) Description 01/03/2021 Refill [facility] [address] [facility] [address] [place] [address] Kristie Barrientos APRN [facility] [address] [place] [address] Medication Refill Social History Tobacco Use Types Packs/Day Years Used Date Smoking Tobacco: Never Smokeless Tobacco: Never Alcohol Use Standard Drinks/Week Comments No 0 (1 standard drink = 0.6 oz pur e alcohol) PHQ-2 Answer Date Recorded PHQ-2 Score 1 11/30/2019 Sex and Gender Information Value Date Recorded Sex Assigned at Not on file Legal Sex Male 3: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 documented in this encounter Plan of Treatment Not on file documented as of this encounter Visit Diagnoses Diagnosis Hypertriglyceridemia Pure hyperglyceridemia Hypercholesteremia Pure hypercholesterolemia documented in this encounter Additional Health Concerns Assessment Noted Time PHQ-9 Depression Total Score: 6 11/30/19 20 8:00 AM CDT documented as of this encounter Care Teams Fixed Income Trading Vice President Relationship Specialty Start Date End Date Kristie Barrientos APRN STEEL SAMPLER [address] [place] [address] PCP - General Nurse Practitioner - Family 09/28/16 Kristie Barrientos APRN STEEL SAMPLER [address] [place] [address] Assigned PCP 08/16/16 03/06/22 Kristie Barrientos APRN STEEL SAMPLER [address] [place] [address] Assigned PCP 05/16/22 08/11/23 documented as of this encounter
--- OUTSIDE RECORDS SUMMARY | 2024-03-29 23:40 | XMS_ITS | Encounter Summary ---
Author Organization [place] Address [address] [place] [address] Care Team Providers Care Electronic Plotting System Operator Name Role Phone Kristie Barrientos APRN, CNP Primary Care Provid er Kristie Barrientos APRN WHITE WORK CLEANER Unavailable + [phone] Kristie Barrientos APRN WHITE WORK CLEANER Unavailable + [phone] Encounter Details Date Type Department Care Team (Late st Contact Info) Description 12/03/2020 [facility] [address] [place] [address] Vashti Lerner RN Social History Tobacco Use Types Packs/Day Years Used Date Smoking Tobacco: Never Smokeless Tobacco: Never Alcohol Use Standard Drinks/Week Comments No 0 (1 standard drink = 0.6 oz pur e alcohol) PHQ-2 Answer Date Recorded PHQ-2 Score 1 11/30/2019 Sex and Gender Information Value Date Recorded Sex Assigned at Not on file Legal Sex Male 3: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
--- OUTSIDE RECORDS SUMMARY | 2024-03-29 23:40 | XMS_ITS | Encounter Summary ---
Author Organization [facility] Address [address] [place] [address] Care Team Providers Care Forest Botany Instructor Name Role Phone Valdemar Richard MD Primary Care Provider [phone]- [phone] Doctor, Tariq JAMES Primary Care Provider UnavailHomero Hernández MD Primary Care Provider [phone] No Ref-Primary, Physician Primary Care Provider CreaganKristie APRN JOB COST ESTIMATOR Primary Care Provid er Creagan, Kristie Zamora APRN JOB COST ESTIMATOR Unavailable [phone]- [phone] Creagan, Kristie Zamora APRN JOB COST ESTIMATOR Unavailable [phone]- [phone] Creagan, Kristie Zamora APRN JOB COST ESTIMATOR Unavailable [phone]- [phone] Encounter Details Date Type Department Care Team (Late st Contact Info) Description 11/10/[address] [place] [address] Valdemar Richard MD [facility] [employer] [facility] [address] [place] [address] Social History Tobacco Use Types Packs/Day Years Used Date Smoking Tobacco: Never Smokeless Tobacco: Never Alcohol Use Standard Drinks/Week Comments No 0 (1 standard drink = 0.6 oz pur e alcohol) Sex and Gender Information Value Date Recorded Sex Assigned at Not on file Legal Sex Male 3:24 AM MARKETING COMMUNITY LIAISON Gender Identity Not on file Sexual Orientation Not on file 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 Not on file documented as of this encounter Plan of Treatment Not on file documented as of this encounter Visit Diagnoses Not on filedocumented in this encounter Care Teams Forest Botany Instructor Relationship Specialty Start Date End Date Valdemar Richard MD [place] [place] [address] [place] [address] PCP - General 05/05/02 01/12/10 Tariq Berry MD PCP - General 05/06/01 05/04/02 Homero Renteria MD PCP - General Internal Medicine 01/13/10 08/10/16 No Ref-Primary, Physician PCP - General 08/11/16 09/27/16 Kristie Barrientos APRN JOB COST ESTIMATOR [address] [place] [address] PCP - General Nurse Practitioner - Family 09/28/16 Kristie Barrientos APRN JOB COST ESTIMATOR [address] [place] [address] PCP - Assigned PCP 08/16/16 05/24/18 Kristie Barrientos APRN JOB COST ESTIMATOR [address] [place] [address] Assigned PCP 08/16/16 03/06/22 Kristie Barrientos APRN JOB COST ESTIMATOR [address] [place] [address] Assigned PCP 05/16/22 08/11/23 documented as of this encounter
--- OUTSIDE RECORDS SUMMARY | 2024-03-29 23:40 | XMS_ITS | Encounter Summary ---
Author Organization [place] Address [address] [place] [address]. [place] [address] Care Team Providers Care Workforce Planner Name Role Phone Homero Renteria MD Primary Care Provider No Ref-Primary, Physician Primary Care Provider Kristie Barrientos APRN LINUX NETWORK ADMINISTRATOR Primary Care Provid er Creagan, Kristie Zamora APRN LINUX NETWORK ADMINISTRATOR Unavailable Creagagilbert, Kristie Zamora APRN LINUX NETWORK ADMINISTRATOR Unavailable Creagan, Kristie Zamora APRN LINUX NETWORK ADMINISTRATOR Unavailable Reason for Referral * Vision Services - Closed Specialty Diagnoses / Procedures Referred By Jimmie t Referred To Contact Diagnoses Dry eyes Keratoconjunctivitis sicca, 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. Please be aware that coverage [...] where they were done to arrange for sweet pickled fruit maker prior to your scheduled appointment. (2) List of current medications (3) This referral request (4) Any documents/labs given to you for this referral Reason for Visit * Reason Onset Date Comments Patient Request 07/27/2016 Order - Referral Encounter Details Date Type Department Care Team (Late st Contact Info) Description 07/27/[address] 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 Anna (covering for [facility]) Referrals - Zane * Telephone Encounter [...] Pt requesting referral to be mailed to [facility] [address] [place] [address], [place] [address] ( ). Insurance requires referral. Needed for [...] unspecified documented in this encounter Care Teams Workforce Planner Relationship Specialty Start Date End Date Homero Renteria MD PCP - General Internal Medicine 01/13/10 08/10/16 No Ref-Primary, Physician PCP - General 08/11/16 09/27/16 Kristie Barrientos APRN LINUX NETWORK ADMINISTRATOR [address] [place], [place] [address] PCP - General Nurse Practitioner - Family 09/28/16 Kristie Barrientos APRN LINUX NETWORK ADMINISTRATOR [address] [place] [address] PCP - Assigned PCP 08/16/16 05/24/18 Kristie Barrientos APRN LINUX NETWORK ADMINISTRATOR [address] [place] [address] Assigned PCP 08/16/16 03/06/22 Kristie Barrientos APRN LINUX NETWORK ADMINISTRATOR [address] [place] [address] Assigned PCP 05/16/22 08/11/23 documented as of this encounter
--- OUTSIDE RECORDS SUMMARY | 2024-03-29 23:40 | XMS_ITS | Encounter Summary ---
Author Organization [place] Address [address] [place] [address] Care Team Providers Care Mortgage Protection Sales Name Role Phone Valdemar Richard MD Primary Care Provider [phone] Homero Renteria MD Primary Care Provider [phone] No Ref-Primary, Physician Primary Care Provider Kristie Barrientos APRN CNMT Primary Care Provid er Creagan, Kristie Zamora APRN CNMT Unavailable [phone] CreagaKristie hunt APRN CNMT Unavailable [phone] CreaganKristie APRN CNMT Unavailable [phone]- [phone] Encounter Details Date Type Department Care Team (Late st Contact Info) Description 07/02/[address] [place] [address] Valdemar Richard MD [facility] [email or web address] [facility] [address] [place] [address] [employer] (Primary Dx) Social History Tobacco Use Types Packs/Day Years Used Date Smoking Tobacco: Never Smokeless Tobacco: Never Alcohol Use Standard Drinks/Week Comments No 0 (1 standard drink = 0.6 oz pur e alcohol) Sex and Gender Information Value Date Recorded Sex Assigned at Not on file Legal Sex Male 3:24 AM CONCRETE PLACEMENT EQUIPMENT OPERATOR Gender Identity Not on file Sexual Orientation Not on file 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 Not on file documented as of this encounter Plan of Treatment Not on file documented as of this encounter Visit Diagnoses Diagnosis [employer]- Primary documented in this encounter Care Teams Mortgage Protection Sales Relationship Specialty Start Date End Date Valdemar Richard MD [facility] [place] [address] [place] [address] PCP - General 05/05/02 01/12/10 Homero Renteria MD [facility] [address] [place] [address] PCP - General Internal Medicine 01/13/10 08/10/16 No Ref-Primary, Physician PCP - General 08/11/16 09/27/16 Kristie Barrientos APRN CNMT [address] [place] [address] PCP - General Nurse Practitioner - Family 09/28/16 Kristie Barrientos APRN CNMT [address] [place] [address] PCP - Assigned PCP 08/16/16 05/24/18 Kristie Barrientos APRN CNMT [address] [place] [address] Assigned PCP 08/16/16 03/06/22 Kristie Barrientos APRN CNMT [address] [place] [address] Assigned PCP 05/16/22 08/11/23 documented as of this encounter
--- OUTSIDE RECORDS SUMMARY | 2024-03-29 23:40 | XMS_ITS | Encounter Summary ---
Author Organization [place] Address [address] [place] [address] Care Team Providers Care Line Maintenance Supervisor Name Role Phone No Ref-Primary, Physician Primary Care Provider CreagaKristie hunt APRN CHEESE FACTORY WORKER Primary Care Provid er Creagan, Kristie Zamora APRN CHEESE FACTORY WORKER Unavailable [phone] Creagan, Kristie Zamora APRN CHEESE FACTORY WORKER Unavailable [phone] Creagan, Kristie Zamora APRN CHEESE FACTORY WORKER Unavailable [phone]- [phone] Reason for Visit * Reason Onset Date Comments Diabetes Education 08/13/2016 Encounter Details Date Type Department Care Team (Late st Contact Info) Description 08/13/[address] [place] [address] Kristie Barrientos RN Diabetes Education Social History Tobacco Use Types Packs/Day Years Used Date Smoking Tobacco: Never Alcohol Use Standard Drinks/Week Comments No 0 (1 standard drink = 0.6 oz pur e alcohol) Sex and Gender Information Value Date Recorded Sex Assigned at Not on file 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 Patient states he has an appt [...] outreach attempt within 1 week. [facility] documented in this encounter Plan of Treatment Not on file documented as of this encounter Visit Diagnoses Diagnosis Hypertriglyceridemia Pure hyperglyceridemia Type 2 diabetes mellitus with complication, without long-term current use of insulin (H) documented in this encounter Care Teams Line Maintenance Supervisor Relationship Specialty Start Date End Date No Ref-Primary, Physician PCP - General 08/11/16 09/27/16 Kristie Barrientos APRN CHEESE FACTORY WORKER [address] [place] [address] PCP - General Nurse Practitioner - Family 09/28/16 Kristie Barrientos APRN CHEESE FACTORY WORKER [address] [place] [address] PCP - Assigned PCP 08/16/16 05/24/18 Kristie Barrientos APRN CHEESE FACTORY WORKER [address] [place] [address] Assigned PCP 08/16/16 03/06/22 Kristie Barrientos APRN CHEESE FACTORY WORKER [address] [address] Assigned PCP 05/16/22 08/11/23 documented as of this encounter
--- OUTSIDE RECORDS SUMMARY | 2024-03-29 23:40 | XMS_ITS | Encounter Summary ---
Author Organization [place] Address [address] [place] [address] Care Team Providers Care It Director Name Role Phone Valdemar Richard MD Primary Care Provider [phone] Doctor, Tariq JAMES Primary Care Provider UnavailHomero Hernández MD Primary Care Provider [phone] No Ref-Primary, Physician Primary Care Provider CreaganKristie APRN ECONOMIC DEVELOPER Primary Care Provid er Creagan, Kristie Zamora APRN ECONOMIC DEVELOPER Unavailable [phone] Creagan, Kristie Zamora APRN ECONOMIC DEVELOPER Unavailable [phone] Creagan, Kristie Zamora APRN ECONOMIC DEVELOPER Unavailable [phone] Encounter Details Date Type Department Care Team (Late st Contact Info) Description 12/09/[address] [place] [address] Valdemar Richard MD [facility] [employer] [facility] [address] [place] [address] Social History Tobacco Use Types Packs/Day Years Used Date Smoking Tobacco: Never Smokeless Tobacco: Never Alcohol Use Standard Drinks/Week Comments No 0 (1 standard drink = 0.6 oz pur e alcohol) Sex and Gender Information Value Date Recorded Sex Assigned at Not on file Legal Sex Male 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 [id number] VEENA HUDDLESTON MD [place]: Document: [id number] [place], [place] Name: OLIVIA MELGAR LCN: ENDO DSC: 12/09/2001 [place], [place] Name: MR#: : Procedure Date: OLIVIA MELGAR [id number] Doctor: KRISTA HUDDLESTON MD OPERATIVE REPORT Page 1 of 2 Electronically filed by Alivia Jiménez 12/23/2001 11:04 AM documented in this encounter Plan of Treatment Not on file documented as of this encounter Visit Diagnoses Not on filedocumented in this encounter Care Teams It Director Relationship Specialty Start Date End Date Valdemar Richard MD [place] [address] [place] [address] PCP - General 05/05/02 01/12/10 Tariq Berry MD PCP - General 05/06/01 05/04/02 Homero Renteria MD PCP - General Internal Medicine 01/13/10 08/10/16 No Ref-Primary, Physician PCP - General 08/11/16 09/27/16 Kristie Barrientos APRN ECONOMIC DEVELOPER [address] [place], [place] [address] PCP - General Nurse Practitioner - Family 09/28/16 Kristie Barrientos APRN ECONOMIC DEVELOPER [address], [place] [address] PCP - Assigned PCP 08/16/16 05/24/18 Kristie Barrientos APRN ECONOMIC DEVELOPER [address] [place] [address] Assigned PCP 08/16/16 03/06/22 Kristie Barrientos APRN ECONOMIC DEVELOPER [address] [place] [address] Assigned PCP 05/16/22 08/11/23 documented as of this encounter
--- OUTSIDE RECORDS SUMMARY | 2024-03-29 23:40 | XMS_ITS | Encounter Summary ---
Author Organization [place] Address [address] [place] [address] Care Team Providers Care Recyclable Materials Collector Name Role Phone Kristie Barrientos APRN, CNP Primary Care Provid er Creagan, Kristie Zamora APRN TUBE TURNER Unavailable [phone] Creagan, Kristie Zamora APRN TUBE TURNER Unavailable [phone] Creagan, Kristie Zamora APRN TUBE TURNER Unavailable [phone]- [phone] Reason for Visit * Reason Onset Date Comments Diabetes Education 02/03/2018 Encounter Details Date Type Department Care Team (Late st Contact Info) Description 02/03/[address] [place] [address] Kristie Barrientos APRN [facility] [address] [place] [address] Diabetes Education Social History Tobacco Use Types Packs/Day Years Used Date Smoking Tobacco: Never Smokeless Tobacco: Never Alcohol Use Standard Drinks/Week Comments No 0 (1 standard drink = 0.6 oz pur e alcohol) Sex and Gender Information Value Date Recorded Sex Assigned at Not on file 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 Cameron [facility]ires Diabetes and Nutrition Scheduling PREPARATION TUTOR documented in this encounter Plan of Treatment Not on file documented as of this encounter Visit Diagnoses Not on filedocumented in this encounter Care Teams Recyclable Materials Collector Relationship Specialty Start Date End Date Kristie Barrientos APRN TUBE TURNER [address] [place] [address] PCP - General Nurse Practitioner - Family 09/28/16 Kristie Barrientos APRN CNP [address] [facility] [place] [address] PCP - Assigned PCP 08/16/16 05/24/18 Kristie Barrientos APRN CNP [address] [place] [address] Assigned PCP 08/16/16 03/06/22 Kristie Barrientos APRN TUBE TURNER [address] [place] [address] Assigned PCP 05/16/22 08/11/23 documented as of this encounter
--- OUTSIDE RECORDS SUMMARY | 2024-03-29 23:40 | XMS_ITS | Clinical Summary ---
Author Organization [employer] Address [place], [place] [address] Care Team Providers Care Tinsmith Apprentice Name Role Phone Zuleyma Bolanos MD Primary Care Provider Allergies Active Allergy Reactions Criticality Noted Date Comments Amoxicillin 02/03/2010 hives [place]et GI Upset 10/14/2020 Cephalexin 02/03/2010 hives [place] GI Upset 10/14/2020 Duloxetine Other - Describe [...] 01/16/20 22 Active continuous glucose monitor READER ([employer] [place])Indications :Type 2 diabetes mellitus with complication, without [...] be used to read blood sugars per electrical engineering manager's directions. 1 Each 10/29/19 24 Active FreeStyle [...] Fibromyalgia 06/23/2021 Overview (06/23/2021): Consult fibromyalgia clinic [place] 2020 Neck pain, chronic 06/23/2021 Tremor 06/23/2021 [...] Department Care Team Description 03/28/2024 10:30 AM INDUSTRIAL METHODS CONSULTANT Nutrition/Dietici an [facility] [address] [place] [address] Error-please disregard (NO SHOW) 03/28/2024 8:00 AM INDUSTRIAL METHODS CONSULTANT - 03/28/2024 11:59 PM INDUSTRIAL METHODS CONSULTANT Hospital Encounter [facility] [address] [place] [address] Lizbeth Pagan, Gladys Cho, PT 03/28/2024 Travel 03/23/2024 7:30 AM INDUSTRIAL METHODS CONSULTANT Office Visit [facility] [address] [place] [address] Zuleyma Bolanos MD Diabetes (6 month Check Up ) 03/22/2024 Travel 02/29/2024 10:02 AM INDUSTRIAL METHODS CONSULTANT - 02/29/2024 11:59 PM INDUSTRIAL METHODS CONSULTANT Hospital Encounter [facility] [address] [place] [address] Lizbeth Pagan NP Bailey, Lisa, PT 02/29/2024 Travel 02/24/2024 Refill [facility] [address] [place] [address] Pina Gr NP Refill Request (Clonidine Hcl) 02/22/2024 9:20 AM INDUSTRIAL METHODS CONSULTANT - 02/22/2024 11:59 PM INDUSTRIAL METHODS CONSULTANT Hospital Encounter [facility] [address] [place] [address] Lizbeth Pagan, FACTORY LAY OUT ENGINEER Gladys Barrera, PT 02/22/2024 Travel 01/03/2024 Refill [facility] [address] [place] [address] Pina Gr, FACTORY LAY OUT ENGINEER Refill Request (Venlafaxine, Trazodone) from Last 3 [...] on file Legal Sex Male 6:27 AM INDUSTRIAL METHODS CONSULTANT Gender Identity Not on file Sexual Orientation Not on file Obstetrics History Last Filed Vital Signs Vital Sign Reading Time Taken Comments Blood Pressure 156/85 03/23/2024 7:43 AM INDUSTRIAL METHODS CONSULTANT Pulse 76 03/23/2024 7:43 AM INDUSTRIAL METHODS CONSULTANT Temperature 36.7 C (98 F) 12/16/2023 8:52 AM CDT Respiratory Rate 18 12/16/2023 8:52 AM CDT Oxygen Saturation 100% 03/23/2024 7:43 AM INDUSTRIAL METHODS CONSULTANT Inhaled Oxygen Concentration - - Weight 64.8 kg (142 lb 12.8 oz) 03/23/2024 7:43 AM INDUSTRIAL METHODS CONSULTANT Height 175.3 cm (5' 9) 12/16/2023 8:52 AM CDT Body Mass Index 21.09 12/16/2023 8:52 AM CDT Plan of Treatment Upcoming Encounters Date Type Department Care Team (Late st Contact Info) Description 04/04/2024 8:45 AM INDUSTRIAL METHODS CONSULTANT Appointment [facility] [address] [place] [address] Gladys Barrera, PT [address] [place] [address] 04/04/2024 2:30 PM INDUSTRIAL METHODS CONSULTANT Office Visit [facility] [place] [address] [place] [address] Mónica Vega, FACTORY LAY OUT ENGINEER [address] [place] [address] 04/04/2024 3:00 PM INDUSTRIAL METHODS CONSULTANT Office Visit [facility] [address] [place] [address] Vijay Garcia L Ac [address] [place] [address] 04/11/2024 8:00 AM INDUSTRIAL METHODS CONSULTANT Appointment [facility] [address], [place] [address] Gladys Barrera, PT [address] [place] [address] 04/11/2024 2:30 PM INDUSTRIAL METHODS CONSULTANT Office Visit [facility] [address] [place] [address] Mónica Vega, FACTORY LAY OUT ENGINEER [address] [place] [address] 04/11/2024 3:00 PM INDUSTRIAL METHODS CONSULTANT Office Visit [facility] [address] [place] [address] Vijay Garcia, L Ac [address] [place] [address] 04/18/2024 9:30 AM INDUSTRIAL METHODS CONSULTANT Appointment [facility] [address] [place] [address] Gladys Barrera, PT [address] [place] [address] 04/18/2024 2:30 PM INDUSTRIAL METHODS CONSULTANT Office Visit [facility] [address] [place] [phone] Mónica Vega, FACTORY LAY OUT ENGINEER [address] [place] [address] 04/18/2024 3:00 PM INDUSTRIAL METHODS CONSULTANT Office Visit [facility] [address] [place] [address] Vijay Garcia, L Ac [address] [place] [address] 04/24/2024 8:00 AM INDUSTRIAL METHODS CONSULTANT Office Visit [facility] [address] [place] [address] Pina Gr NP [address] [place] [address] 04/25/2024 9:30 AM INDUSTRIAL METHODS CONSULTANT Appointment [facility] [address] [place] [address] Gladys Barrera, PT [address] [place] [address] 04/25/2024 2:30 PM INDUSTRIAL METHODS CONSULTANT Office Visit [facility] [address] [place] [address] Mónica Vega, FACTORY LAY OUT ENGINEER [address] [place] [address] 04/25/2024 3:00 PM INDUSTRIAL METHODS CONSULTANT Office Visit [facility] [address] [place] [address] Vijay Garcia, L Ac [address] [place] [address] 05/02/2024 9:30 AM INDUSTRIAL METHODS CONSULTANT Appointment [facility] [address] [place] [address] Gladys Barrera, PT [address] [place] [address] 05/02/2024 2:30 PM INDUSTRIAL METHODS CONSULTANT Office Visit [facility] [address] [place] [address] Mónica Vega, BRIANA [address] [place] [address] 05/02/2024 3:00 PM INDUSTRIAL METHODS CONSULTANT Office Visit [facility] [address] [place] [address] Vijay Garcia L [address] [place] [address] 05/09/2024 9:30 AM INDUSTRIAL METHODS CONSULTANT Appointment [facility] [address] [place] [address] Gladys Barrera, PT [address] [place] [address] 05/09/2024 2:30 PM INDUSTRIAL METHODS CONSULTANT Office Visit [facility] [address] [place] [address] Mónica Vega, FACTORY LAY OUT ENGINEER [address] [place] [address] 05/09/2024 3:00 PM INDUSTRIAL METHODS CONSULTANT Office Visit [facility] [address] [place] [address] Vijay Garcia, L Ac [address] [place] [address] 05/16/2024 9:30 AM INDUSTRIAL METHODS CONSULTANT [facility] [address] [place] [address] Gladys Barrera, PT [address] [place] [address] 05/16/2024 2:30 PM INDUSTRIAL METHODS CONSULTANT Office Visit [facility] [address] [place] [phone] Mónica Vega, BRIANA [address] [place] [address] 05/16/2024 3:00 PM INDUSTRIAL METHODS CONSULTANT Office Visit [facility] [address] [place] [address] Vijay Garcia, Jerry Ac [address] [place] [address] 05/23/2024 2:30 PM INDUSTRIAL METHODS CONSULTANT Office Visit [facility] [address] [place] [phone] Mónica Vega, FACTORY LAY OUT ENGINEER [address] [place] [address] 05/23/2024 3:00 PM INDUSTRIAL METHODS CONSULTANT Office Visit [facility] [address] [place] [address] Vijay Garcia L Ac [address] [place] [address] 07/19/2024 2:30 PM CDT Office Visit [facility] [address] [place] [address] Mónica Vega, BRIANA [address] [place] [address] 07/19/2024 3:00 PM CDT Office Visit [facility] [address] [place] [address] Vijay Garcia, Jerry Ac [address] [place], [place] [id number] Health Maintenance Due Date Last Done Comments [...] 07/12/2030 07/12/2020, 06/21, 11/24/2011 (Completed outside of [facility]), Additional history exists Colonoscopy through age [...] BASIC METABOLIC PANEL Routine 03/23/2024 7:35 AM INDUSTRIAL METHODS CONSULTANT Type 2 diabetes mellitus with complication, without long-term current use of insulin (HC) IRON PLUS IRON BINDING CAP Routine 03/23/2024 7:35 AM INDUSTRIAL METHODS CONSULTANT Biallelic mutation of HFE gene Elevated ferritin HEPATIC FUNCTION PANEL Routine 03/23/2024 7:35 AM INDUSTRIAL METHODS CONSULTANT Transaminitis HEMOGLOBIN A1C MONITORING (POCT) Routine 03/23/2024 7:34 AM INDUSTRIAL METHODS CONSULTANT Type 2 diabetes mellitus with complication, without long-term current use of insulin (HC) LIPID PANEL W REFLEX MEASURED LDL Routine 08/23/2023 9:45 AM CDT Hypertriglyceridemi a COLONOSCOPY SCREENING Routine 09/02/2022 7:44 AM CDT Screening for colon cancer from Last 3 Months or Most Recently Relevant to Health Maintenance Results * IRON PLUS IRON BINDING CAP (03/23/2024 7:35 AM INDUSTRIAL METHODS CONSULTANT) IRON, TOTAL 84 50 - 180 mcg/dL [facility] IRON BINDING CAPACITY 348 250 - 425 mcg/dL (calc) [facility] % SATURATION 24 20 - 48 % (calc) [facility] Blood BLOOD SPECIMEN / Unknown 03/23/2024 7:35 AM INDUSTRIAL METHODS CONSULTANT 03/23/2024 7:35 AM INDUSTRIAL METHODS CONSULTANT us Zuleyma Bolanos MD CHEMISTRY Final Resul t [facility] [address] [place] [address], [employer] [address] [place] [address] * LIVER PANEL (HEPATIC FUNCTION PANEL) (03/23/2024 7:35 AM INDUSTRIAL METHODS CONSULTANT) PROTEIN, TOTAL 7.2 6.1 - 8.1 g/dL [...] ALKALINE PHOSPHATASE 113 35 - 144 U/L [facility] AST 24 10 - 35 U/L [facility] ALT 35 9 - 46 U/L [facility] Blood BLOOD SPECIMEN / Unknown 03/23/2024 7:35 AM INDUSTRIAL METHODS CONSULTANT 03/23/2024 7:35 AM INDUSTRIAL METHODS CONSULTANT us Zuleyma Bolanos MD CHEMISTRY Final Resul t [facility] [address] [place] [address], [employer] [address] [place] [address] * (ABNORMAL) BASIC METABOLIC PANEL (03/23/2024 7:35 AM INDUSTRIAL METHODS CONSULTANT) Pathologist [facility] GLUCOSE 129(H) 65 - 99 mg/dL [facility] Comment: Fasting reference interval For someone [...] BLOOD SPECIMEN / Unknown 03/23/2024 7:35 AM INDUSTRIAL METHODS CONSULTANT 03/23/2024 7:35 AM INDUSTRIAL METHODS CONSULTANT us Zuleyma Bolanos MD CHEMISTRY Final Resul t [place] [address] [place] [address], [place] [phone] [address] * (ABNORMAL) POCT Hemoglobin A1C Monitoring (03/23/2024 7:34 AM INDUSTRIAL METHODS CONSULTANT) POC HEMOGLOBIN A1C 7.7(H) <6.0 % OF TOTAL HGB [facility] Comment: Any point of care results exhibiting inconsistency with the patient's clinical status should be repeated using a different testing method. Blood BLOOD SPECIMEN / Unknown 03/23/2024 7:34 AM INDUSTRIAL METHODS CONSULTANT 03/23/2024 7:35 AM INDUSTRIAL METHODS CONSULTANT us Zuleyma Bolanos MD CHEMISTRY Final Resul t Performing Organization Address City/[facility]/ZIP Co de Phone Number [facility] [address] [place] [address], [place] [phone] [facility] [address] [place] [address] * LIPID PANEL W REFLEX MEASURED LDL (08/23/2023 9:45 AM CDT) CHOLESTEROL,TOTAL 153 100 - 199 mg/dL 08/23/2023 7:23 PM CDT [facility] Comment: Cholesterol, Total Reference Ranges Desirable <200 mg/dL Borderline 200-239 mg/dL High >=240 mg/dL TRIGLYCERIDES 122 <150 mg/dL 08/23/2023 7:23 PM CDT [facility] HDL CHOLESTEROL 48 >40 mg/dL 7:23 PM CDT [facility] NON-HDL CHOLESTEROL 105 <145 mg/dl 08/23/2023 7:23 PM CDT [facility] CHOL/HDL RATIO 3.19 <4.50 08/23/2023 7:23 PM CDT [facility] LDL CHOLESTEROL 81 <=130 mg/dL 08/23/2023 7:23 PM CDT [facility] VLDL CHOLESTEROL 24 <=30 mg/dL 08/23/2023 7:23 PM CDT [facility] PROVIDER ORDERED STATUS [place] 08/23/2023 7:23 PM CDT [facility] Blood BLOOD SPECIMEN / Unknown Venipuncture / Unknown 08/23/2023 9:45 AM CDT 08/23/2023 9:46 AM CDT us Zuleyma Bolanos MD CHEMISTRY Final Resul t [facility] [address] [place] [address], * COLONOSCOPY (09/02/2022 7:39 AM CDT) 09/02/2022 [...] adequate candidate for conscious sedation. The PCF-H190L [id number] was passed through the anus and advanced [...] 7:39 AM Procedure Code(s): --- Professional --- 50612, Colonoscopy, flexible; diagnostic, including collection of specimen(s) bybrushing or washing, when performed (separateprocedure) Diagnosis Code(s): --- Professional --- Z12.11, Encounter for screening formalignant neoplasm of colon CPT copyright 2021 [employer]. All rights reserved. The codes documented in this report are preliminary and upon medical biller/coder reviewmay be revised to meet current compliance requirements. Scope In: 8:51:37 AM Scope Withdrawal Time 0 hours 7 minutes 9 seconds Scope Out: 9:03:42 AM Selwyn Tilley MD PROCEDURE ORD Final Res ult from Last 3 Months or Most Recently Relevant to Health Maintenance Insurance [facility] ADVANTAGE MEDICARE PB ONLY MEDICARE PART B HB ONLY Care Teams Tinsmith Apprentice Relationship Specialty Start Date End Date Zuleyma Bolanos MD [address] [place] [address] PCP - General Family Practice 08/06/22
--- OUTSIDE RECORDS SUMMARY | 2024-03-29 23:40 | XMS_ITS | Encounter Summary ---
Author Organization [place] Address [address] [place] [address] Care Team Providers Care Advertising Analyst Name Role Phone Valdemar Richard MD Primary Care Provider [phone] Homero Renteria MD Primary Care Provider [phone] Ref-Primary, Physician Primary Care Provider Kristie Barrientos APRN TUBE CLEANER Primary Care Provid er Creagan, Kristie Zamora APRN TUBE CLEANER Unavailable [phone] TerriagaKristie hunt APRN TUBE CLEANER Unavailable [phone] CreagaKristie hunt APRN TUBE CLEANER Unavailable [phone] Encounter Details Date Type Department Care Team (Late st Contact Info) Description 01/28/[address] [place] [address] Valdemar Richard MD [facility] [address] [place] [address] [facility] (Primary Dx) Social History Tobacco Use Types Packs/Day Years Used Date Smoking Tobacco: Never Smokeless Tobacco: Never Alcohol Use Standard Drinks/Week Comments No 0 (1 standard drink = 0.6 oz pur e alcohol) Sex and Gender Information Value Date Recorded Sex Assigned at Not on file Legal Sex Male 3:24 AM HOSPITAL PHARMACIST Gender Identity Not on file Sexual Orientation Not on file 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 Not on file documented as of this encounter Plan of Treatment Not on file documented as of this encounter Visit Diagnoses Diagnosis [facility]- Primary documented in this encounter Care Teams Advertising Analyst Relationship Specialty Start Date End Date Valdemar Richard MD [employer] [address] [place] [address] PCP - General 05/05/02 01/12/10 Homero Renteria MD [facility] [address] [place] [address] PCP - General Internal Medicine 01/13/10 08/10/16 No Ref-Primary, Physician PCP - General 08/11/16 09/27/16 Kristie Barrientos APRN TUBE CLEANER [address] [place] [address] PCP - General Nurse Practitioner - Family 09/28/16 Kristie Barrientos APRN TUBE CLEANER [address] [place] [address] PCP - Assigned PCP 08/16/16 05/24/18 Kristie Barrientos APRN TUBE CLEANER [address] [place] [address] Assigned PCP 08/16/16 03/06/22 Kristie Barrientos APRN TUBE CLEANER [address] [place] [address] Assigned PCP 05/16/22 08/11/23 documented as of this encounter
--- OUTSIDE RECORDS SUMMARY | 2024-03-29 23:40 | XMS_ITS | Encounter Summary ---
Author Organization [place] Address [address] [place] [address] Care Team Providers Care Aircraft Seat Upholsterer Name Role Phone Valdemar Richard MD Primary Care Provider [phone] Homero Renteria MD Primary Care Provider [phone] Ref-Primary, Physician Primary Care Provider Kristie Barrientos APRN PROPERTY INVESTOR Primary Care Provid er Creagan, Kristie Zamora APRN PROPERTY INVESTOR Unavailable [phone] CreagaKristie hunt APRN PROPERTY INVESTOR Unavailable [phone] CreaganKristie APRN PROPERTY INVESTOR Unavailable [phone] Encounter Details Date Type Department Care Team (Late st Contact Info) Description 08/27/[address] [place] [address] Valdemar Richard MD [facility] [employer] [facility] [address] [place] [address] [facility] (Primary Dx) Social History Tobacco Use Types Packs/Day Years Used Date Smoking Tobacco: Never Smokeless Tobacco: Never Alcohol Use Standard Drinks/Week Comments No 0 (1 standard drink = 0.6 oz pur e alcohol) Sex and Gender Information Value Date Recorded Sex Assigned at Not on file Legal Sex Male 3:24 AM SPIRITUAL MINISTER Gender Identity Not on file Sexual Orientation Not on file 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 Not on file documented as of this encounter Plan of Treatment Not on file documented as of this encounter Visit Diagnoses Diagnosis [facility]- Primary documented in this encounter Care Teams Aircraft Seat Upholsterer Relationship Specialty Start Date End Date Valdemar Richard MD [facility] [employer] [address] [place] [address] PCP - General 05/05/02 01/12/10 Homero Renteria MD [facility] [address] [place] [address] PCP - General Internal Medicine 01/13/10 08/10/16 No Ref-Primary, Physician PCP - General 08/11/16 09/27/16 Kristie Barrientos APRN PROPERTY INVESTOR [address] [place] [address] PCP - General Nurse Practitioner - Family 09/28/16 Kristie Barrientos APRN PROPERTY INVESTOR [address] [place] [address] PCP - Assigned PCP 08/16/16 05/24/18 Kristie Barrientos APRN PROPERTY INVESTOR [address] [place] [address] Assigned PCP 08/16/16 03/06/22 Kristie Barrientos APRN PROPERTY INVESTOR [address] [place] [address] Assigned PCP 05/16/22 08/11/23 documented as of this encounter
--- OUTSIDE RECORDS SUMMARY | 2024-03-29 23:40 | XMS_ITS | Clinical Summary ---
Author Organization [place] Address [address] [place] [address] Care Team Providers Care Usability Engineer Name Role Phone Terrirui Kristie Zamora APRN SOCIAL MEDIA ASSISTANT Primary Care Provid er Allergies Active Allergy [...] on file Legal Sex Male 3:24 AM CONFERENCE CENTER MANAGER Gender Identity Not on file Sexual [...] Plan of Treatment Not on file Insurance [facility] [employer] [facility] [employer] [place] [address] Care Teams Usability Engineer Relationship Specialty Start Date End Date Kristie Barrientos APRN CNP [address] [place] [address] PCP - General Nurse Practitioner - Family 09/28/16
[2024-03-29 23:45] LABS: Albumin* 4.5 g/dL (3.3-5.0); Chloride* 104 mmol/L (96-114); Potassium* 3.8 mmol/L (3.6-5.1); Sodium* 137 mmol/L (135-149)
[2024-03-29 23:47] LABS: Anion Gap 7 mEq/L (7-15); Carbon Dioxide* 26 mmol/L (20-32); Est. Creatinine Clearance* 76.59; Estimated Glomerular Filt Rate 85 ml/min
[2024-03-29 23:48] LABS: Alanine Aminotransferase* 41 U/L (4-50); Alkaline Phosphatase* 96 U/L (40-150); Aspartate Amino Transferase* 32 U/L (12-35); Bilirubin Direct* 0.2 mg/dL (0.0-0.5); Bilirubin Total* 0.2 mg/dL (0.1-1.5); Blood Urea Nitrogen* 25 mg/dL (7-30); Calcium* 9.6 mg/dL (8.4-10.6); Glucose* 174 mg/dL (60-115); Lipase* 199 U/L (23-300); Total Protein* 7.1 g/dL (6.0-8.3)
[2024-03-30] MEDS: KETOROLAC 30 MG/ML inj IVP (00:11)
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
== END 2024-03-30 00:25 | disposition home or self-care (01) ==
PROVIDERS: Emergency Provider Family Medicine; PCP Family Medicine
DX: R10.11 Right upper quadrant pain (principal)
CPT/HCPCS: 36415; 74177; 80048; 80076; 82565; 83690; 85025; 93005; 96374; 99282; 99283; 99284; J1885; Q9967